=== PATIENT | female | born 1945 | race Caucasian/White ===

== ENCOUNTER 2016-09-23 06:44 | Inpatient (IN) ==
--- NOTE | 2016-09-22 20:42 | Discharge Summary ---
<Caron Romero - Last Filed: 09/22/16 20:38> Date of Encounter: 09/24/16 - Discharge Diagnosis (1) Arthritis of knee, right Priority: Primary Status: Acute (2) HTN (hypertension) Priority: Secondary Status: Chronic Qualifiers: Hypertension type: essential hypertension Qualified Code(s): I10 - Essential (primary) hypertension (3) COPD (chronic obstructive pulmonary disease) Priority: Secondary Status: Chronic Qualifiers: COPD type: unspecified COPD Qualified Code(s): J44.9 - Chronic obstructive pulmonary disease, unspecified (4) Tobacco abuse Priority: Secondary Status: Chronic - Discharge Medications Home Medications: Albuterol Sulfate [Albuterol Inhaler] 2 puff IH Q4HR PRN 08/16/15 [History] Atenolol [Tenormin] 50 mg PO DAILY #0 08/16/15 [History] Citalopram [CeleXA] 20 mg PO HS 08/16/15 [History] Aspirin Enteric Coated [Aspirin EC] 325 mg PO DAILY #21 tablet. 09/22/16 [Rx] OxyCODONE Immed Rel [Roxicodone 5 MG] 5 - 10 mg PO Q6HR PRN #40 tablet 09/22/16 [Rx] Aspirin 81 mg PO DAILY 09/23/16 [History] Diclofenac Sodium [Voltaren] 75 mg PO BID 09/23/16 [History] Ferrous Sulfate [Iron] 325 mg PO HS 09/23/16 [History] Losartan Potassium [Cozaar] 50 mg PO HS 09/23/16 [History] Pantoprazole Sodium [Protonix] 40 mg PO DAILY PRN 09/23/16 [History] Allergies/Adverse Reactions: Allergies Oxycodone Adverse Reaction (Verified 09/23/16 11:38) Confusion Primary care physician: Cary Anderson CNP - Patient Status Disposition: Home, Self-Care Condition: Good - Discharge Instructions Follow Up With: Erwin Burns MD [Partnered Physician] - 10/22/16 9:40 am Caron Romero PAC [Physician Hazmat Technician] - 10/03/16 8:45 am Cary Anderson CNP [Primary Care Provider] - 10/31/16 10:20 am - Hospital Course Hospital course: Ms. Reveles is a 71 year old female - Time Spent with Patient Total time spent providing and/or coordinating discharge services: <Erwin Burns - Last Filed: 09/24/16 06:27> Time of Encounter: 06:27 - Discharge Diagnosis (1) Arthritis of knee, right Priority: Primary Status: Acute (2) COPD (chronic obstructive pulmonary disease) Priority: Secondary Status: Chronic Qualifiers: COPD type: unspecified COPD Qualified Code(s): J44.9 - Chronic obstructive pulmonary disease, unspecified (3) HTN (hypertension) Priority: Secondary Status: Chronic Qualifiers: Hypertension type: essential hypertension Qualified Code(s): I10 - Essential (primary) hypertension (4) Tobacco abuse Priority: Secondary Status: Chronic Primary care physician: Cary Anderson CNP - Patient Status Functional capacity at discharge: uses cane/walker Overall status at discharge: patient is progressing back to baseline - Hospital Course Hospital course: Ms. Reveles is a 71 year old female The patient had an uneventful postoperative course. They received antibiotics and physical therapy and were discharged in stable condition. There will follow -up in the office in 2 weeks. ASA DVT prophylaxis - Time Spent with Patient Total time spent providing and/or coordinating discharge services:
--- NOTE | 2016-09-23 06:48 | History & Physical Report ---
Date of Encounter: 09/23/16 Time of Encounter: 06:47 24 Hour HP Update - Instructions Instructions: If the History and Physical is less than 30 days old and was completed prior to A.M. admission and or procedure and has NOT been updated on calendar day of procedure please complete this update prior to performing procedure. - Update Patient reports changes in Medical Condition: No Changes in assessment/condition: No Changes in Medication: No Preop tests/diagnostics Reviewed: Yes Surgery Remains Indicated: Yes Consent for Planned Operative Procedure(s) Verified: Yes - Pre-Operative Checklist Preoperative Checklist Indicated: No Prophylactic Antibiotic Ordered: Yes Is VTE Prophylaxis Indicated?: Yes
[2016-09-23] MEDS ORDERED: Albuterol 2.5 MG/3 ML NEBULIZER IH ONE (07:02)
[2016-09-23] MEDS ORDERED: CeFAZolin Pre 2,000 MG/100 ML 2,000 MG/100 ML BAG IVPB ONE (07:02)
[2016-09-23] MEDS ORDERED: Lidocaine 1% 20 ML MDV ID ONE (07:02)
[2016-09-23] MEDS ORDERED: Ringers Solution, Lactated 1,000 ML IVC SCH ×2 (07:15→11:31)
[2016-09-23] MEDS ORDERED: *HR* FentaNYL (PF) 100 MCG/2 ML VIAL ONE ×2 (07:53→08:00)
[2016-09-23] MEDS ORDERED: *HR* Midazolam HCl 2 MG/2 ML VIAL ONE (07:54)
[2016-09-23] MEDS ORDERED: *HR* Propofol 200 MG/20 ML VIAL IVP ONE (07:54)
[2016-09-23] MEDS ORDERED: Lidocaine -MPF 2% 2 ML VIAL ONE (07:54)
--- NOTE | 2016-09-23 08:25 | Anesthesia Evaluation PreOp ---
Date of Encounter: 09/23/16 Time of Encounter: 08:20 - Past History Planned Operation: Rt TKA Cardiac History: HTN Pulmonary History: Smoker, COPD IT ADMINISTRATOR History: Denies Any Significant HX Other Medical History: GERD, Other (Depression) Anesthesia History: No Prior Anesthetic Complications Alcohol Use: none Drug use: none Medications and Allergies Albuterol Sulfate [Albuterol Inhaler] 2 puff IH Q4HR PRN 08/16/15 [History] Atenolol 50 mg PO DAILY 08/16/15 [History] Citalopram [CeleXA] 20 mg PO DAILY 08/16/15 [History] Losartan [Cozaar] 25 mg PO DAILY 08/16/15 [History] Omeprazole [PriLOSEC] 20 mg PO DAILY 08/16/15 [History] Aspirin Enteric Coated [Aspirin EC] 325 mg PO DAILY #21 tablet. 09/22/16 [Rx] OxyCODONE Immed Rel [Roxicodone 5 MG] 5 - 10 mg PO Q6HR PRN #40 tablet 09/22/16 [Rx] Allergies No Known Allergies Allergy (Verified 03/30/16 00:23) - Meds/Allergy Pre-op Review Medications Reviewed: Yes Allergies Reviewed: Yes Beta Blockers on Current Med List: Yes (Atenolol today 25 mg) Anesthesia Results - Labs Laboratory Tests 09/09/16 09/09/16 09:45 09:45 Hgb 14.2 Hct 45.6 H Plt Count 399 Sodium 140 Potassium 4.7 H BUN 19 Creatinine 0.80 - Imaging EKG: report reviewed (SB) Anesthesia Exam O2 Sat Height 1.57 m Height 1.57 m Height 1.57 m Weight 77.564 kg Weight 77.564 kg Weight 77.564 kg O2 Sat by Pulse Oximetry 97 O2 Sat by Pulse Oximetry 97 Vital Signs Temp Pulse Resp BP Pulse Ox 98.6 F 59 18 129/72 97 09/23/16 07:01 09/23/16 07:01 09/23/16 07:01 09/23/16 07:01 09/23/16 07:01 Height: 5'2 Weight: 168 lbs NPO (# of Hours): MN - HEENT Pupil (Motor): Pupils equal, EOMI Mallampati: III Teeth: Missing, Poor dentition Oral Opening: Less than or equal to 3 - IT ADMINISTRATOR LOC: Oriented IT ADMINISTRATOR Motor: Normal RUE, Normal LUE, Normal RLE, Normal LLE, Normal Face IT ADMINISTRATOR Sensory: Normal: RUE, LUE, RLE, LLE, Face - Cardiac Rhythm: Regular Murmur: None JVD: No Carotid Bruit: No - Pulmonary Breath Sounds: bilateral Clear Respiratory Effort: Symmetrical Anesthesia Assess/Plan ASA Score: 2 Modified Drain Scale for Level of Consciousness: Cooperative, oriented, and tranquil Anesthetic Plan: General, Regional Monitoring Plan: Standard Monitors Recovery Plan: PACU (Discussed GA and Femoral Block, agrees to proceed)
[2016-09-23] MEDS ORDERED: Famotidine 20 MG/2 ML VIAL IVP ONE (08:26)
[2016-09-23] MEDS ORDERED: Tetracaine/PF 20 MG/2 ML AMPUL SPINA ONE (08:47)
[2016-09-23] MEDS ORDERED: Dexamethasone 4 MG/ML VIAL ONE (09:10)
[2016-09-23] MEDS ORDERED: Ketorolac 30 MG/ML VIAL ONE (09:10)
[2016-09-23] MEDS ORDERED: Ondansetron 4 MG/2 ML VIAL ONE (09:10)
[2016-09-23] MEDS ORDERED: EPHEDrine 50 MG/ML VIAL ONE (09:12)
[2016-09-23] MEDS ORDERED: *HR* HYDROmorphone 2 MG/ML SYRINGE ONE (09:24)
--- NOTE | 2016-09-23 09:24 | Anesthesia Procedures ---
Date of Encounter: 09/23/16 Time of Encounter: 08:45 Procedures: Anesthesia - Nerve Block Procedure Date: 09/23/16 Time: 08:45 Allergies/Adv Reactions: Allergies No Known Allergies Allergy (Verified 09/23/16 08:26) Pre-op Diagnosis: oa right knee Surgical Procedure: right tka Checklist: Correct Patient Identifier, Correct procedure, History checked Correct side: Right Blood Thinner: No Monitor Applied: EKG, BP, Pulse Oximetry Supplemental Oxygen via Nasal Cannula (L/min): 2 Sedation: Versed (mg): 2 Sedation: Fentanyl (mcg): 100 Indication: Post Op Analgesia Pre-op Neuro Deficits: No Block Type: Femoral Catheter placed: No Sterile Technique: Yes Ultrasound used: Yes Anatomy identified: Yes Visual spread of Local: Yes Neuro Stimulation: Yes Nerve Stimulator Range: 0.2 - 0.4 mA Blood on Needle Aspiration: No Smooth Injection of Local: Yes Pain with Injection of Local: Yes Prep: Chlorhexadine Needle: 22 x 50 mm Stimuplex Local: Other (0.5% bupivaine) Volume (cc): 30 Number of Attempts: 1 Complications: None/effective block Vitals: see nurses notes Comments: peripheral nerve block under ultrasound per dr peralta request for postop pain relief
[2016-09-23] MEDS ORDERED: *HR* Labetalol 100 MG/20 ML MDV IVP PRN (09:25)
--- NOTE | 2016-09-23 09:43 | Orthopedic Operative Note ---
Date of procedure: 09/23/16 Pre-op diagnosis: Right knee arthritis Post-op diagnosis: same Procedure: Procedure: Right Total knee replacement Estimated blood loss: 200 cc Hardware: Arthrex Femur: 4 Tibia: 3 PS insert: 14 Patella: 37 Exam Under anesthesia: Full flexion full extension no instability Procedural Notes: Grade 3 arthritic changes medial compartment patellofemoral joint. Operative procedure: The patient was brought to the operating room and placed on the operating room table. After general anesthesia was administered the operative knee was examined. Findings were noted in the exam under anesthesia. The operative extremity was prepped and draped in sterile surgical fashion. The patient received IV antibiotics prior to skin incision. A standard midline incision was made centered over the patella. The incision was made through the skin and subcutaneous tissue. A medial parapatellar tendon approach was performed. Care was taken to preserve tissue along the medial aspect of the patella. And to protect the patella tendon. The deep MCL was released off the medial tibia. The infra patella fat pad was excised. Knee was brought into flexion. Patient noted to have grade 3 arthritic changes medial compartment patellofemoral joint. The entry hole was made for the intramedullary femoral guide. The guide was seated in 6 degrees of valgus. Anterior cut was made followed by the distal cut. The ACL the PCL the medial and the lateral menisci were excised. The tibia was subluxed forward. The entry hole was made for the intramedullary tibial guide. Guide was seated to resect 2 mm off the more abnormal side. The knee was brought into flexion the distal femur was sized for. The femoral guide was seated, the anterior cut was made followed by the posterior condylar cut, followed by the chamfer cuts. The finishing guide was seated the box cut was made and the lug holes were drilled. The tibia was sized 3, the tibial tray was seated and prepared with the large drill followed by the fin cutter. Trial reduction revealed full extension no varus valgus instability with the appropriate 14 PS Dorita. The patella was everted and cut was made at the level of the insertion of the quadriceps and patella tendon. The patella was sized 37 the guide was seated and the lug holes are drilled. Trial reduction revealed excellent patella tracking. All trial components were removed all bony surfaces were irrigated. The tibia was cemented first followed by the femur. A 14 PS Dorita was seated and the knee was brought into full extension. The patella was cemented and held in place with the patellar holding clamp. After the cement had hardened, the knee sat for 2 minutes with a Betadine saline solution. The knee was then irrigated out with 2 L of pulse irrigation. The extensor mechanism was closed with #2 FiberWire suture and #2 PDS suture. The subcutaneous tissue was then irrigated and closed deep with #1 PDS suture superficially with 0 PDS suture and skin was closed with skin emigdio and Dermabond. The patient was then placed in a sterile dressing and a postoperative brace extubated and transferred to recovery room in stable condition. Anesthesia: NILTON Surgeon: Erwin Burns Professional Services Consultant: Caron Romero Condition: stable Disposition: PACU
[2016-09-23] MEDS: *HR* HYDROmorphone (PF) 1 MG/ML SYRINGE IVP PRN ×4 (10:24→10:46)
[2016-09-23 10:38] LABS: Hematocrit 39.4 % (35.3-44.9); Hemoglobin 12.5 g/dL (11.5-15.4)
[2016-09-23] MEDS ORDERED: Sennosides 8.6 MG TABLET PO PRN (11:31)
[2016-09-23] MEDS ORDERED: MOM Conc 10 ML UD.LIQ PO PRN (11:31)
[2016-09-23] MEDS ORDERED: Albuterol Neb 1.25 MG/3 ML VIAL IH ONE (11:31)
[2016-09-23] MEDS ORDERED: *HR* HYDROmorphone (PF) 1 MG/ML SYRINGE IVP PRN (11:31)
[2016-09-23] MEDS ORDERED: Acetaminophen 325 MG TABLET PO PRN (11:31)
[2016-09-23] MEDS ORDERED: *HR* OxyCODONE Immed Rel 5 MG TABLET PO PRN ×2 (11:31)
[2016-09-23] MEDS ORDERED: Temazepam 15 MG CAPSULE PO PRN (11:31)
[2016-09-23] MEDS ORDERED: Naloxone 0.4 MG/ML INJ IVP PRN (11:31)
[2016-09-23] MEDS ORDERED: Ondansetron 4 MG/2 ML VIAL IVP PRN (11:31)
--- NOTE | 2016-09-23 12:00 | Anesthesia Evaluation Post Op ---
Date of Encounter: 09/23/16 Time of Encounter: 11:40 - Vital Signs Vital Signs: Vital Signs/O2 Sat/Glucose, Most Current Temp Pulse Resp BP Pulse Ox 09/23/16 11:29 98.8 F 63 16 144/75 98 09/23/16 11:06 97.2 F L 68 16 160/80 97 09/23/16 10:56 76 16 151/70 98 09/23/16 10:46 70 16 159/78 97 09/23/16 10:36 97.0 F L 78 16 158/82 98 09/23/16 10:26 70 14 164/87 98 09/23/16 10:16 72 16 164/87 99 09/23/16 10:06 97.6 F 73 12 159/91 97 09/23/16 08:56 60 128/65 98 09/23/16 08:48 53 132/88 100 - Lungs Lungs: Clear Ascult./Percussion - Airway Airway: Non-obstructed - Cardiovascular Regular Rate - Mental Status Mental Status: Alert & Oriented, Answers Appropriately - Nausea Vomiting Nausea Vomiting: Not Present - Hydration Hydration: Ice chips - Discharge PostOp Status: Transfer Patient to floor
[2016-09-23] MEDS: *HR* Enoxaparin 30 MG/0.3 ML SYRINGE SQ SCH (16:54)
[2016-09-23] MEDS: ceFAZolin 2,000 MG in D5% in Water 100 ML IVPB SCH (16:54)
[2016-09-23] MEDS ORDERED: *HR* Enoxaparin 30 MG/0.3 ML SYRINGE SQ SCH (18:00)
[2016-09-23] MEDS: Diclofenac Sodium 75 MG TABLET PO SCH (21:07)
[2016-09-23] MEDS: *HR* HYDROcodone/Acet 5/325 mg TABLET PO PRN (21:07)
[2016-09-24] MEDS: ceFAZolin 2,000 MG in D5% in Water 100 ML IVPB SCH (00:28)
[2016-09-24] MEDS: *HR* HYDROcodone/Acet 5/325 mg TABLET PO PRN ×3 (05:14→20:05)
[2016-09-24] MEDS: *HR* Enoxaparin 30 MG/0.3 ML SYRINGE SQ SCH ×2 (05:14→17:58)
[2016-09-24 05:21] LABS: Hematocrit 33.6 % (35.3-44.9); Hemoglobin 10.6 g/dL (11.5-15.4)
[2016-09-24 05:34] LABS: BUN/Creatinine Ratio 18 (6-26); Blood Urea Nitrogen 12 mg/dL (7-20); Calcium 9.1 mg/dL (8.6-10.8); Carbon Dioxide 19 mEq/L (19-29); Chloride 108 mEq/L (98-109); Glucose 102 mg/dL (70-99); Osmolality,Calculated 286 (280-300); Potassium 4.3 mEq/L (3.5-4.5); Sodium 138 mEq/L (136-145); eGFR For African Americans > 60 (> 60); eGFR For Non-African Americans > 60 (> 60)
--- NOTE | 2016-09-24 06:28 | Orthopedics Progress Note ---
Date of Encounter: 09/24/16 Time of Encounter: 06:28 - Assessment and Plan (1) Arthritis of knee, right Current Visit: Yes Status: Acute (2) COPD (chronic obstructive pulmonary disease) Current Visit: Yes Status: Chronic Qualifiers: COPD type: unspecified COPD Qualified Code(s): J44.9 - Chronic obstructive pulmonary disease, unspecified (3) HTN (hypertension) Current Visit: Yes Status: Chronic Qualifiers: Hypertension type: essential hypertension Qualified Code(s): I10 - Essential (primary) hypertension (4) Tobacco abuse Current Visit: Yes Status: Chronic Subjective Interval history: Patient was seen this morning doing well without complaints. Afebrile vital signs stable. Operative extremity: Neurovascularly intact Dressing clean dry and intact Calves nontender Assessment and plan: Continue with postoperative care Hematocrit 33 discharge today Objective Vital signs: Vital Signs Temp Pulse Resp BP Pulse Ox 09/24/16 04:00 98.2 F 69 16 121/60 98 09/24/16 00:00 98.0 F 64 18 112/55 98 09/23/16 19:02 98.1 F 69 18 115/56 97 09/23/16 16:08 16 120/69 98 09/23/16 15:03 98.6 F 65 18 120/69 98 09/23/16 14:30 98.5 F 65 12 132/72 98 09/23/16 13:16 97.9 F 63 12 133/73 98 09/23/16 12:30 98.8 F 62 16 124/58 97 09/23/16 12:16 97.9 F 60 16 130/75 97 09/23/16 11:29 98.8 F 63 16 144/75 98 09/23/16 11:06 97.2 F L 68 16 160/80 97 09/23/16 10:56 76 16 151/70 98 09/23/16 10:46 70 16 159/78 97 09/23/16 10:36 97.0 F L 78 16 158/82 98 09/23/16 10:26 70 14 164/87 98 09/23/16 10:16 72 16 164/87 99 09/23/16 10:06 97.6 F 73 12 159/91 97 09/23/16 08:56 60 128/65 98 09/23/16 08:48 53 132/88 100 09/23/16 07:12 98.6 F 59 18 129/72 97 09/23/16 07:01 98.6 F 59 18 129/72 97 Intake and Output 09/23/16 09/23/16 09/24/16 15:59 23:59 07:59 Intake Total 300 / 300 2180 / 2180 100 / 100 Output Total 200 / 200 900 / 900 300 / 300 Balance 100 / 100 1280 / 1280 -200 / -200 Intake: IV Fluids 100 / 100 100 / 100 100 / 100 Ancef 2,000 MG In 100 / 100 100 / 100 Dextrose 5% 100 ML @ 200 mls/hr IVPB Q8H VINNY Rx#: [id number] Ancef Premix 2,000 MG/100 100 / 100 ML 2,000 mg In 100 ml @ 200 mls/hr IVPB PREOP ONE Rx#:[id number] Oral 200 / 200 2080 / 2080 Output: Urine 900 / 900 300 / 300 Estimated Blood Loss 200 / 200 Other: Meal Lunch Dinner Percent of Meal Consumed 90% 100% # Voids 1 1 - Labs CBC & BMP: 09/24/16 04:45 09/24/16 04:45 Labs: Abnormal lab results Hgb 10.6 g/dL (11.5-15.4) L D 09/24/16 04:45 Hct 33.6 % (35.3-44.9) L 09/24/16 04:45 Glucose 102 mg/dL (70-99) H 09/24/16 04:45 - VTE Documentation of Mechanical Device: Intermittent pneumatic compression device Consult Discharge Plan - Plan Referrals: Erwin Burns MD [Partnered Physician] - 10/22/16 9:40 am Caron Romero PAC [Physician Gear Keeper] - 10/03/16 8:45 am Cary Anderson CNP [Primary Care Provider] - 10/31/16 10:20 am
[2016-09-24] MEDS: Diclofenac Sodium 75 MG TABLET PO SCH ×2 (09:15→20:05)
[2016-09-24] MEDS: Aspirin 81 MG TAB.CHEW PO SCH (09:15)
[2016-09-25] MEDS: *HR* HYDROcodone/Acet 5/325 mg TABLET PO PRN ×5 (00:51→21:02)
[2016-09-25] MEDS: *HR* Enoxaparin 30 MG/0.3 ML SYRINGE SQ SCH ×2 (05:43→18:58)
[2016-09-25 06:37] LABS: Hematocrit 38.5 % (35.3-44.9); Hemoglobin 11.8 g/dL (11.5-15.4)
[2016-09-25 06:50] LABS: BUN/Creatinine Ratio 19 (6-26); Blood Urea Nitrogen 13 mg/dL (7-20); Calcium 9.6 mg/dL (8.6-10.8); Carbon Dioxide 23 mEq/L (19-29); Chloride 105 mEq/L (98-109); Glucose 93 mg/dL (70-99); Osmolality,Calculated 292 (280-300); Potassium 3.9 mEq/L (3.5-4.5); Sodium 141 mEq/L (136-145); eGFR For African Americans > 60 (> 60); eGFR For Non-African Americans > 60 (> 60)
[2016-09-25] MEDS: Aspirin 81 MG TAB.CHEW PO SCH (09:34)
[2016-09-25] MEDS: Diclofenac Sodium 75 MG TABLET PO SCH ×2 (09:34→19:23)
--- NOTE | 2016-09-25 09:43 | Orthopedics Progress Note ---
Date of Encounter: 09/25/16 Time of Encounter: 09:43 - Assessment and Plan (1) Arthritis of knee, right Current Visit: Yes Status: Acute (2) COPD (chronic obstructive pulmonary disease) Current Visit: Yes Status: Chronic Qualifiers: COPD type: unspecified COPD Qualified Code(s): J44.9 - Chronic obstructive pulmonary disease, unspecified (3) HTN (hypertension) Current Visit: Yes Status: Chronic Qualifiers: Hypertension type: essential hypertension Qualified Code(s): I10 - Essential (primary) hypertension (4) Tobacco abuse Current Visit: Yes Status: Chronic Subjective Interval history: Patient was seen this morning doing well without complaints. Afebrile vital signs stable. Operative extremity: Neurovascularly intact Dressing clean dry and intact Calves nontender Assessment and plan: Continue with postoperative care Hematocrit 38 Objective Vital signs: Vital Signs Temp Pulse Resp BP Pulse Ox 09/25/16 07:12 98.1 F 66 16 149/65 96 09/25/16 05:04 98.0 F 61 16 136/71 92 L 09/25/16 01:33 98.1 F 67 16 120/70 92 L 09/24/16 21:58 98.6 F 68 16 144/69 92 L 09/24/16 15:51 98.2 F 57 16 141/78 97 09/24/16 11:21 98.5 F 78 16 130/63 98 Intake and Output 09/24/16 09/25/16 09/25/16 23:59 07:59 15:59 Intake Total 240 / 240 Balance 240 / 240 Intake: Oral 240 / 240 Other: Meal Breakfast Percent of Meal Consumed 90% - Labs CBC & BMP: 09/25/16 05:51 09/25/16 05:51 - VTE Documentation of Mechanical Device: Intermittent pneumatic compression device Consult Discharge Plan - Plan Additional Instructions: Discharge Instructions: Total Knee Replacement Please call [facility] ([phone]), your Primary Care Physician, or report to the Emergency Room if you have any of the following symptoms: Nausea, vomiting, fever greater that 101.5, swelling, chest pain, shortness of breath, increased pain/redness/drainage/odor for your incision site, numbness/ tingling, or any other concerning symptoms. ACTIVITY:Weight-bearing as tolerated. You may progress off support (cruthches or walker) as tolerated. MEDICATIONS: Upon discharge resume your home medications. Take all the medications as prescribed. Take a stool softener if taking narcotic pain medications. Stool softeners are only effective if you drink enough fluids. Drink 6-8 glass of water or fluids a day, unless this is not allowed for another health problem. Despite using stool softeners, if you haven't had a bowel movement in 3 days, please switch to a gentle laxative. Gentle laxatives are sold over the counter. You should have a bowel movement within 24 hours, if not call the office. You will be discharged from the hospital with a prescription for pain medication. You are encouraged to decrease the use of narcotic pain medication as tolerated. Should you require a refill, please call the office. [facility] prescribes narcotic pain medication for only 4-6 weeks after surgery. If you require pain medication beyond this time periord, you may be referred to your Primary Care Physician or to the Pain Clinic for further evaluation. Plan ahead for refills on pain medication as many narcotics either need to be picked up at the office or mailed. It is best to call 48-72 hours in advance of needing a prescription refill so you don't run out of medication. To help control the post-operative pain, you may take NSAIDs (Aleve,Advil, Motrin, ibuprofen, naprosyn) or Tylenol as prescribed on the bottle in addition to the pain medication. ANTICOAGULATION (blood thinners): Continue your Aspirin, Lovenox or Coumadin as prescribed to help prevent a blood clot in the leg or in the lungs. As long as your incision remains dry and you tolerate the NSAIDs (Aleve, Advil, Motrin, ibuprofen, naprosyn), it is OK to use the NSAIDS while you are taking your anticoagulation medication. Should your incision start to drain, stop the NSAID and contact our office. Common symptoms of blood clot in the legs include: localized pain, swelling, calf tenderness, redness or discoloration of the skin. Blood clot in the lung symptoms include: shortness of breath, rapid pulse, sweating, and chest pain that worsens with deep breathing, coughing up blood, lightheadedness, feelings of anxiety. If you experience any of these symptoms notify your physician immediately, go to the emergency room, or if having trouble breathing, call 911. WOUND CARE: Leave the dressing on for 7 days. You may change the dressing if it becomes saturated greater than 50%. You can shower but not a tub bath or submerge your incision in water. Wash your hands with antibacterial soap, rinse and dry prior to any wound care. If you have emigdio the visiting nurse or rehab facility can remove the stapes 10-14 days after surgery and place steri- strips across the wound. Leave the steri-strips in place until they fall off on their won. You may let water from the shower run on top of the steri-stirips. If you do not have a visiting nurse or rehab facility, you will need to return to the office at 10-14 days for the emigdio to be removed. FOLLOW-UP: Please follow up with your surgeon in the orthopedic clinic in 4 weeks from the day of surgery. If you have emigdio that need to be removed, you will need to come back to the office in 10-14 days from the day of surgery. Referrals: Erwin Burns MD [Partnered Physician] - 10/22/16 9:40 am Caron Romero PAC [Physician Supervisor Toy Assembly] - 10/03/16 8:45 am Cary Anderson CNP [Primary Care Provider] - 10/31/16 10:20 am
[2016-09-26] MEDS: *HR* Enoxaparin 30 MG/0.3 ML SYRINGE SQ SCH (05:52)
[2016-09-26] MEDS: *HR* HYDROcodone/Acet 5/325 mg TABLET PO PRN ×2 (05:55→10:05)
[2016-09-26 06:35] VITALS: BP 95/56
[2016-09-26] MEDS: Aspirin 81 MG TAB.CHEW PO SCH (10:06)
[2016-09-26] MEDS: Diclofenac Sodium 75 MG TABLET PO SCH (10:06)
== END 2016-09-26 10:40 | disposition home or self-care (01) | DRG 470 ==
LOC: SAMDAY 06:44 → 3NENU 11:14
PROVIDERS: ADMIT Orthopaedic Surgery; ATTEND Orthopaedic Surgery

== ENCOUNTER 2021-02-08 09:21 | Inpatient (IN) ==
[2021-02-08] MEDS ORDERED: Isovue-370 500 ML BOTTLE IVP ONE (09:39)
[2021-02-08] MEDS ORDERED: *HR* FentaNYL (PF) 100 MCG/2 ML VIAL IVP ONE ×2 (09:40→10:50)
[2021-02-08 11:06] LABS: Albumin 4.4 g/dL (3.5-5.7); Albumin/Globulin Ratio 1.3 (1.1-2.2); Bilirubin,Indirect 0.4 mg/dL (0.0-1.0); Bilirubin,Total 0.4 mg/dL (0.3-1.0); Globulin 3.3 g/dL (2.4-3.5); Total Protein 7.7 g/dL (6.4-8.9)
[2021-02-08] MEDS ORDERED: *HR* HYDROmorphone (PF) 1 MG/ML SYRINGE IVP ONE (13:03)
[2021-02-08] MEDS ORDERED: Naloxone 0.4 MG/ML INJ IVP PRN (13:48)
[2021-02-08] MEDS ORDERED: *HR* HYDROmorphone (PF) 1 MG/ML SYRINGE IVP PRN (14:39)
[2021-02-08] MEDS ORDERED: 0.9 % Sodium Chloride 1,000 ML IVC SCH (14:45)
[2021-02-08 15:16] LABS: Basophils # 0.1 K/mcL (0.0-0.2); Basophils % 0.3 %; Eosinophils % 0.1 %; Hematocrit 50.4 % (35.3-44.9); Hemoglobin 15.6 g/dL (11.5-15.4); Immature Granulocytes % 0.7 % (0-4); Lymphocytes # 1.7 K/mcL (0.6-4.6); Lymphocytes % 7.8 %; Mean Corpuscular Hemoglobin 31.8 pg (28.0-33.3); Mean Corpuscular Volume 102.6 fL (83.0-100.0); Mean Platelet Volume 11.8 fL (9.4-12.4); Monocytes # 1.4 K/mcL (0.0-1.3); Monocytes % 6.4 %; Neutrophils # 18.6 K/mcL (1.6-8.9); Platelet Count 219 K/mcL (140-400); Red Blood Count 4.91 M/mcL (3.82-4.97); Red Cell Distribution Width 15.5 % (11.5-14.5); Segmented Neutrophils % 84.7 %; White Blood Count 21.9 K/mcL (4.3-11.1)
[2021-02-08] MEDS ORDERED: Piperacillin/Tazobactam 3.375 GM in 0.9 % Sodium Chloride Mini Bag 100 ML IVPB ONE (15:23)
[2021-02-08 16:18] LABS: BUN/Creatinine Ratio 23 (6-26); Blood Urea Nitrogen 13 mg/dL (8-23); Calcium 9.5 mg/dL (8.6-10.3); Carbon Dioxide 16 mEq/L (23-29); Chloride 110 mEq/L (98-107); Glucose 122 mg/dL (70-105); Magnesium 2.1 mg/dL (1.6-2.6); Osmolality,Calculated 291 (280-300); Phosphorous 3.4 mg/dL (2.7-4.5); Potassium 3.9 mEq/L (3.5-5.1); Sodium 140 mEq/L (136-145); Troponin I < 0.03 ng/mL (< 0.04); eGFR For African Americans > 60 (> 60); eGFR For Non-African Americans > 60 (> 60)
[2021-02-08] MEDS: atenoloL 50 MG TABLET PO SCH (16:34)
[2021-02-08] MEDS ORDERED: Ondansetron 4 MG/2 ML VIAL IVP PRN (17:05)
[2021-02-08] MEDS: Sodium Bicarbonate 75 MEQ in 0.45 % Sodium Chloride 1,000 ML IVC SCH (20:34)
[2021-02-08] MEDS ORDERED: Acetaminophen IV 1,000 MG/100 ML BAG IVPB ONE (22:57)
[2021-02-08] MEDS: Piperacillin/Tazobactam 3.375 GM in 0.9 % Sodium Chloride Mini Bag 100 ML IVPB SCH (23:40)
[2021-02-09] MEDS ORDERED: Acetaminophen IV 1,000 MG/100 ML BAG IVPB ONE ×3 (04:28→14:03)
[2021-02-09] MEDS: Levothyroxine 25 MCG TABLET PO SCH ×2 (05:05→07:40)
[2021-02-09] MEDS: Piperacillin/Tazobactam 3.375 GM in 0.9 % Sodium Chloride Mini Bag 100 ML IVPB SCH ×2 (07:33→17:12)
[2021-02-09] MEDS: atenoloL 50 MG TABLET PO SCH (07:40)
[2021-02-09] MEDS ORDERED: cefOXitin 1,000 MG, Sodium Chloride IRRigation 1,000 ML IR ONE ×2 (08:00→14:03)
[2021-02-09] MEDS ORDERED: Aspirin 81 MG TAB.CHEW PO SCH (09:00)
[2021-02-09] MEDS ORDERED: Loratadine 10 MG TABLET PO SCH (09:00)
[2021-02-09] MEDS ORDERED: predniSONE 10 MG TABLET PO SCH (09:00)
[2021-02-09 09:30] LABS: Basophils % 0.2 %; Hematocrit 48.8 % (35.3-44.9); Hemoglobin 15.5 g/dL (11.5-15.4); Immature Granulocytes % 0.7 % (0-4); Lymphocytes # 1.1 K/mcL (0.6-4.6); Lymphocytes % 4.9 %; Mean Corpuscular HGB Conc 31.8 g/dL (31.6-35.5); Mean Corpuscular Hemoglobin 31.6 pg (28.0-33.3); Mean Corpuscular Volume 99.6 fL (83.0-100.0); Mean Platelet Volume 12.3 fL (9.4-12.4); Monocytes % 4.2 %; Neutrophils # 20.6 K/mcL (1.6-8.9); Platelet Count 245 K/mcL (140-400); Red Cell Distribution Width 15.4 % (11.5-14.5); White Blood Count 22.8 K/mcL (4.3-11.1)
[2021-02-09 09:47] LABS: Alanine Aminotransferase 146 Units/L (7-52); Albumin 3.9 g/dL (3.5-5.7); Albumin/Globulin Ratio 1.4 (1.1-2.2); Alkaline Phosphatase 108 Units/L (34-104); Aspartate Amino Transferase 156 Units/L (13-39); BUN/Creatinine Ratio 16 (6-26); Bilirubin,Total 4.9 mg/dL (0.3-1.0); Blood Urea Nitrogen 11 mg/dL (8-23); Calcium 9.1 mg/dL (8.6-10.3); Carbon Dioxide 22 mEq/L (23-29); Chloride 108 mEq/L (98-107); Globulin 2.8 g/dL (2.4-3.5); Glucose 143 mg/dL (70-105); Osmolality,Calculated 288 (280-300); Phosphorous 3.1 mg/dL (2.7-4.5); Potassium 3.7 mEq/L (3.5-5.1); Sodium 138 mEq/L (136-145); Total Protein 6.7 g/dL (6.4-8.9); eGFR For African Americans > 60 (> 60); eGFR For Non-African Americans > 60 (> 60)
[2021-02-09] MEDS ORDERED: *HR* FentaNYL (PF) 100 MCG/2 ML VIAL ONE ×2 (09:49→12:24)
[2021-02-09] MEDS ORDERED: *HR* Rocuronium Bromide 50 MG/5 ML VIAL ONE (09:50)
[2021-02-09] MEDS ORDERED: Ondansetron 4 MG/2 ML VIAL ONE (09:50)
[2021-02-09] MEDS ORDERED: *HR* Propofol 200 MG/20 ML VIAL IVP ONE (09:50)
[2021-02-09] MEDS ORDERED: *HR* Succinylcholine 200 MG/10 ML VIAL IVP ONE (09:50)
[2021-02-09] MEDS ORDERED: Lidocaine HCL 4 ML Topical Solution (Laryng-O-Jet Kit Sterile Pak) TP ONE (09:50)
[2021-02-09] MEDS ORDERED: Lidocaine -MPF 2% 2 ML VIAL ONE ×2 (09:50→12:35)
[2021-02-09] MEDS ORDERED: Ipratropium/Albuterol Neb 3 ML ONE ×2 (10:46→10:51)
[2021-02-09] MEDS ORDERED: Isovue-300 50ML VIAL ONE (10:52)
[2021-02-09] MEDS ORDERED: CefOXitin 1,000 MG VIAL ONE (10:54)
[2021-02-09] MEDS ORDERED: Promethazine 6.25 MG in Water for inj. (sterile) 20 ML IVPB PRN ×2 (11:15→14:03)
[2021-02-09] MEDS ORDERED: Famotidine 20 MG/2 ML VIAL IVP ONE ×2 (11:15→14:03)
[2021-02-09] MEDS ORDERED: *HR* OxyCODONE Immed Rel 5 MG TABLET PO PRN ×2 (11:15→14:03)
[2021-02-09] MEDS ORDERED: *HR* HYDROmorphone 2 MG TABLET PO PRN ×2 (11:15→14:03)
[2021-02-09] MEDS ORDERED: *HR* Labetalol 20 MG/4 ML SYRINGE IVP PRN ×2 (11:15→14:03)
[2021-02-09] MEDS: *HR* HYDROmorphone (PF) 1 MG/ML SYRINGE IVP PRN ×5 (12:55→18:34)
[2021-02-09] MEDS ORDERED: Sodium Bicarbonate 75 MEQ in 0.45 % Sodium Chloride 1,000 ML IVC SCH (14:03)
[2021-02-09] MEDS ORDERED: Ondansetron 4 MG/2 ML VIAL IVP PRN (14:03)
[2021-02-09] MEDS ORDERED: Naloxone 0.4 MG/ML INJ IVP PRN (14:03)
[2021-02-09] MEDS: Sodium Bicarbonate 75 MEQ in 0.45 % Sodium Chloride 1,000 ML IVC SCH (19:06)
[2021-02-10] MEDS: *HR* HYDROmorphone (PF) 1 MG/ML SYRINGE IVP PRN ×5 (00:45→20:18)
[2021-02-10] MEDS: Piperacillin/Tazobactam 3.375 GM in 0.9 % Sodium Chloride Mini Bag 100 ML IVPB SCH ×4 (00:52→23:42)
[2021-02-10 04:28] LABS: Alanine Aminotransferase 96 Units/L (7-52); Albumin 3.3 g/dL (3.5-5.7); Albumin/Globulin Ratio 1.1 (1.1-2.2); Alkaline Phosphatase 114 Units/L (34-104); Aspartate Amino Transferase 60 Units/L (13-39); BUN/Creatinine Ratio 16 (6-26); Bilirubin,Total 1.8 mg/dL (0.3-1.0); Blood Urea Nitrogen 10 mg/dL (8-23); Calcium 8.5 mg/dL (8.6-10.3); Carbon Dioxide 16 mEq/L (23-29); Chloride 104 mEq/L (98-107); Glucose 74 mg/dL (70-105); Magnesium 1.9 mg/dL (1.6-2.6); Osmolality,Calculated 278 (280-300); Phosphorous 2.4 mg/dL (2.7-4.5); Potassium 4.3 mEq/L (3.5-5.1); Sodium 135 mEq/L (136-145); Total Protein 6.3 g/dL (6.4-8.9); eGFR For African Americans > 60 (> 60); eGFR For Non-African Americans > 60 (> 60)
[2021-02-10 05:06] LABS: Basophils % 0.1 %; Hematocrit 44.4 % (35.3-44.9); Hemoglobin 14.2 g/dL (11.5-15.4); Immature Granulocytes % 1.1 % (0-4); Lymphocytes # 1.5 K/mcL (0.6-4.6); Lymphocytes % 6.5 %; Mean Corpuscular Hemoglobin 32.6 pg (28.0-33.3); Mean Corpuscular Volume 101.8 fL (83.0-100.0); Mean Platelet Volume 12.4 fL (9.4-12.4); Monocytes # 1.3 K/mcL (0.0-1.3); Monocytes % 5.3 %; Neutrophils # 20.6 K/mcL (1.6-8.9); Platelet Count 223 K/mcL (140-400); Red Blood Count 4.36 M/mcL (3.82-4.97); Red Cell Distribution Width 15.2 % (11.5-14.5); White Blood Count 23.7 K/mcL (4.3-11.1)
[2021-02-10] MEDS: Loratadine 10 MG TABLET PO SCH (07:46)
[2021-02-10] MEDS: predniSONE 10 MG TABLET PO SCH (07:46)
[2021-02-10] MEDS: atenoloL 50 MG TABLET PO SCH (07:47)
[2021-02-10] MEDS: Levothyroxine 25 MCG TABLET PO SCH (08:04)
[2021-02-10] MEDS ORDERED: Ipratropium/Albuterol Neb 3 ML IH PRN (14:03)
[2021-02-10] MEDS: Sodium Bicarbonate 75 MEQ in 0.45 % Sodium Chloride 1,000 ML IVC SCH (20:18)
[2021-02-11] MEDS: *HR* HYDROmorphone (PF) 1 MG/ML SYRINGE IVP PRN ×4 (03:03→21:44)
[2021-02-11] MEDS: Levothyroxine 25 MCG TABLET PO SCH (05:44)
[2021-02-11 06:45] LABS: Hemoglobin 12.7 g/dL (11.5-15.4); Mean Corpuscular HGB Conc 31.8 g/dL (31.6-35.5); Mean Corpuscular Hemoglobin 32.5 pg (28.0-33.3); Mean Corpuscular Volume 102.3 fL (83.0-100.0); Mean Platelet Volume 12.5 fL (9.4-12.4); Platelet Count 212 K/mcL (140-400); Red Blood Count 3.91 M/mcL (3.82-4.97); Red Cell Distribution Width 15.2 % (11.5-14.5); White Blood Count 16.5 K/mcL (4.3-11.1)
[2021-02-11 07:03] LABS: Alanine Aminotransferase 53 Units/L (7-52); Albumin 3.3 g/dL (3.5-5.7); Alkaline Phosphatase 79 Units/L (34-104); Aspartate Amino Transferase 19 Units/L (13-39); BUN/Creatinine Ratio 18 (6-26); Bilirubin,Total 1.3 mg/dL (0.3-1.0); Blood Urea Nitrogen 11 mg/dL (8-23); Calcium 8.9 mg/dL (8.6-10.3); Carbon Dioxide 26 mEq/L (23-29); Chloride 104 mEq/L (98-107); Globulin 3.2 g/dL (2.4-3.5); Glucose 80 mg/dL (70-105); Osmolality,Calculated 282 (280-300); Potassium 3.8 mEq/L (3.5-5.1); Sodium 137 mEq/L (136-145); Total Protein 6.5 g/dL (6.4-8.9); eGFR For African Americans > 60 (> 60); eGFR For Non-African Americans > 60 (> 60)
[2021-02-11] MEDS ORDERED: Perflutren Lipid Microsphere 1.3 ML in 0.9 % Sodium Chloride 8.7 ML IVP PRN (07:59)
[2021-02-11] MEDS: Piperacillin/Tazobactam 3.375 GM in 0.9 % Sodium Chloride Mini Bag 100 ML IVPB SCH ×3 (08:48→23:09)
[2021-02-11] MEDS: predniSONE 10 MG TABLET PO SCH (08:49)
[2021-02-11] MEDS: atenoloL 50 MG TABLET PO SCH (08:49)
[2021-02-11] MEDS: Loratadine 10 MG TABLET PO SCH (08:49)
[2021-02-11] MEDS ORDERED: Furosemide 40 MG/4 ML VIAL IVP ONE (09:43)
[2021-02-11] MEDS: Sodium Bicarbonate 75 MEQ in 0.45 % Sodium Chloride 1,000 ML IVC SCH (11:42)
[2021-02-11] MEDS: MethylPREDNISolone 40 MG/ML VIAL IVP SCH ×2 (16:29→23:09)
[2021-02-11] MEDS ORDERED: Isovue-370 500 ML BOTTLE IVP ONE (16:56)
[2021-02-12 01:53] LABS: Hematocrit 41.2 % (35.3-44.9); Hemoglobin 12.9 g/dL (11.5-15.4); Mean Corpuscular HGB Conc 31.3 g/dL (31.6-35.5); Mean Corpuscular Hemoglobin 31.9 pg (28.0-33.3); Mean Corpuscular Volume 101.7 fL (83.0-100.0); Mean Platelet Volume 12.6 fL (9.4-12.4); Platelet Count 239 K/mcL (140-400); Red Blood Count 4.05 M/mcL (3.82-4.97); Red Cell Distribution Width 14.6 % (11.5-14.5)
[2021-02-12 02:13] LABS: Alanine Aminotransferase 49 Units/L (7-52); Albumin 3.4 g/dL (3.5-5.7); Alkaline Phosphatase 102 Units/L (34-104); Aspartate Amino Transferase 19 Units/L (13-39); BUN/Creatinine Ratio 24 (6-26); Bilirubin,Total 1.1 mg/dL (0.3-1.0); Blood Urea Nitrogen 14 mg/dL (8-23); Calcium 9.1 mg/dL (8.6-10.3); Carbon Dioxide 27 mEq/L (23-29); Chloride 103 mEq/L (98-107); Globulin 3.5 g/dL (2.4-3.5); Glucose 143 mg/dL (70-105); Osmolality,Calculated 289 (280-300); Potassium 4.2 mEq/L (3.5-5.1); Sodium 138 mEq/L (136-145); Total Protein 6.9 g/dL (6.4-8.9); eGFR For African Americans > 60 (> 60); eGFR For Non-African Americans > 60 (> 60)
[2021-02-12] MEDS: Levothyroxine 25 MCG TABLET PO SCH (05:31)
[2021-02-12] MEDS: MethylPREDNISolone 40 MG/ML VIAL IVP SCH (08:38)
[2021-02-12] MEDS: Piperacillin/Tazobactam 3.375 GM in 0.9 % Sodium Chloride Mini Bag 100 ML IVPB SCH ×2 (08:39→17:40)
[2021-02-12] MEDS: atenoloL 50 MG TABLET PO SCH (08:40)
[2021-02-12] MEDS: Loratadine 10 MG TABLET PO SCH (08:40)
[2021-02-12] MEDS ORDERED: Acetaminophen 325 MG TABLET PO PRN (10:22)
[2021-02-12] MEDS ORDERED: *HR* HYDROcodone/Acet 5/325 mg TABLET PO PRN ×2 (10:22)
[2021-02-12 11:33] LABS: ABG Base Excess 4 mEq/L (-2 to 3); ABG HCO3 28 mEq/L (21-27); ABG Oxygen Saturation 94 % (95-98); ABG PCO2 41 mmHg (35-45); ABG PH 7.44 pH Units (7.32-7.45); ABG PO2 69 mmHg (85-104); ABG TCO2 29 mEq/L (20-26)
[2021-02-12] MEDS: Ipratropium/Albuterol Neb 3 ML IH SCH ×4 (14:30→23:56)
[2021-02-12] MEDS ORDERED: MethylPREDNISolone 40 MG/ML VIAL IVP SCH (20:00)
[2021-02-12] MEDS: Sennosides/Docusate Sodium TABLET PO SCH (20:39)
[2021-02-13] MEDS: Piperacillin/Tazobactam 3.375 GM in 0.9 % Sodium Chloride Mini Bag 100 ML IVPB SCH ×3 (00:29→15:50)
[2021-02-13] MEDS: Ipratropium/Albuterol Neb 3 ML IH SCH ×4 (04:00→15:05)
[2021-02-13 05:27] LABS: Magnesium 2.2 mg/dL (1.6-2.6); Phosphorous 3.1 mg/dL (2.7-4.5)
[2021-02-13 05:28] LABS: Alanine Aminotransferase 70 Units/L (7-52); Albumin 3.4 g/dL (3.5-5.7); Alkaline Phosphatase 101 Units/L (34-104); Aspartate Amino Transferase 38 Units/L (13-39); BUN/Creatinine Ratio 25 (6-26); Bilirubin,Total 0.7 mg/dL (0.3-1.0); Blood Urea Nitrogen 18 mg/dL (8-23); Calcium 9.3 mg/dL (8.6-10.3); Carbon Dioxide 25 mEq/L (23-29); Chloride 104 mEq/L (98-107); Globulin 3.4 g/dL (2.4-3.5); Glucose 148 mg/dL (70-105); Osmolality,Calculated 295 (280-300); Potassium 4.3 mEq/L (3.5-5.1); Sodium 140 mEq/L (136-145); Total Protein 6.8 g/dL (6.4-8.9); eGFR For African Americans > 60 (> 60); eGFR For Non-African Americans > 60 (> 60)
[2021-02-13] MEDS: Levothyroxine 25 MCG TABLET PO SCH (06:02)
[2021-02-13] MEDS ORDERED: predniSONE 20 MG TABLET PO SCH (09:00)
[2021-02-13] MEDS ORDERED: Aspirin 81 MG TAB.CHEW PO SCH (09:00)
[2021-02-13] MEDS: atenoloL 50 MG TABLET PO SCH (09:36)
[2021-02-13] MEDS: Sennosides/Docusate Sodium TABLET PO SCH (09:36)
[2021-02-13] MEDS: Loratadine 10 MG TABLET PO SCH (09:37)
[2021-02-13 10:47] VITALS: BP 138/68
== END 2021-02-13 16:56 | disposition home or self-care (01) | DRG 417 ==
LOC: EMEROOARM 09:21 → 3BNU 09:21 → SUATTDRO 13:39 → 3BNU 14:24 → SUATTDRO 02-10 16:39
PROVIDERS: ADMIT Internal Medicine; ATTEND Internal Medicine

== ENCOUNTER 2021-06-29 00:02 | Inpatient (IN) ==
[2021-06-29] MEDS ORDERED: Naloxone 0.4 MG/ML INJ IVP PRN (04:31)
[2021-06-29] MEDS ORDERED: Ondansetron 4 MG/2 ML VIAL IVP PRN (04:31)
[2021-06-29] MEDS ORDERED: Ipratropium/Albuterol Neb 3 ML IH PRN (05:19)
[2021-06-29] MEDS: MethylPREDNISolone 40 MG/ML VIAL IVP SCH ×2 (05:38→17:04)
[2021-06-29] MEDS: 0.9 % Sodium Chloride 1,000 ML IVC SCH ×2 (05:38→17:03)
[2021-06-29 05:56] LABS: Basophils % 0.2 %; Hematocrit 38.5 % (35.3-44.9); Hemoglobin 11.4 g/dL (11.5-15.4); Immature Granulocytes % 0.8 % (0-4); Lymphocytes # 1.2 K/mcL (0.6-4.6); Lymphocytes % 4.9 %; Mean Corpuscular HGB Conc 29.6 g/dL (31.6-35.5); Mean Corpuscular Hemoglobin 28.4 pg (28.0-33.3); Mean Corpuscular Volume 95.8 fL (83.0-100.0); Mean Platelet Volume 11.4 fL (9.4-12.4); Monocytes # 1.6 K/mcL (0.0-1.3); Monocytes % 6.5 %; Platelet Count 523 K/mcL (140-400); Red Blood Count 4.02 M/mcL (3.82-4.97); Red Cell Distribution Width 17.1 % (11.5-14.5); Segmented Neutrophils % 87.6 %; White Blood Count 24.7 K/mcL (4.3-11.1)
[2021-06-29 05:59] LABS: Basophils # 0.1 K/mcL (0.0-0.2); Neutrophils # 21.6 K/mcL (1.6-8.9)
[2021-06-29 06:03] LABS: INR 1.3
[2021-06-29 06:12] LABS: Anisocytosis 1+ (Not Present); Platelet Estimate Increased (Normal)
[2021-06-29 06:36] LABS: Alanine Aminotransferase 8 Units/L (7-52); Albumin/Globulin Ratio 0.9 (1.1-2.2); Alkaline Phosphatase 116 Units/L (34-104); Aspartate Amino Transferase 13 Units/L (13-39); BUN/Creatinine Ratio 19 (6-26); Bilirubin,Direct 0.1 mg/dL (0.0-0.2); Bilirubin,Indirect 0.3 mg/dL (0.0-1.0); Bilirubin,Total 0.4 mg/dL (0.3-1.0); Blood Urea Nitrogen 11 mg/dL (8-23); Carbon Dioxide 24 mEq/L (23-29); Chloride 108 mEq/L (98-107); Globulin 3.5 g/dL (2.4-3.5); Glucose 118 mg/dL (70-105); Osmolality,Calculated 286 (280-300); Potassium 4.4 mEq/L (3.5-5.1); Sodium 138 mEq/L (136-145); Total Protein 6.5 g/dL (6.4-8.9); eGFR For African Americans > 60 (> 60); eGFR For Non-African Americans > 60 (> 60)
[2021-06-29] MEDS: Piperacillin/Tazobactam 3.375 GM in 0.9 % Sodium Chloride Mini Bag 100 ML IVPB SCH ×2 (07:42→17:04)
[2021-06-29] MEDS: Acetaminophen 325 MG TABLET PO PRN ×2 (07:42→15:51)
[2021-06-29 08:28] LABS: Bacteria,Urine Few per hpf (None-Few); Bilirubin,Urine Negative (Negative); Blood,Urine Negative (Negative); Clarity,Urine Clear (Clear); Color,Urine Light-Yellow (Yellow); Glucose,Urine (UA) 50 mg/dL (Normal); Ketones,Urine Negative (Negative); Leukocyte Esterase,Urine Negative (Negative); Mucus,Urine Few per lpf (None-Few); Nitrite,Urine Negative (Negative); PH,Urine 6.5 pH Units (5.0-8.0); Protein,Urine Trace mg/dL (Neg-Trace); RBC,Urine 0-3 per hpf (0-3); Specific Gravity,Urine 1.023 (1.010-1.025); Squamous Epithelial Cell,Urine Few per hpf (None-Few); Urobilinogen,Urine Normal (Normal)
[2021-06-29 11:18] LABS: C-Reactive Protein 202 mg/L (Less than 10)
[2021-06-29] MEDS ORDERED: *HR* OxyCODONE Immed Rel 5 MG TABLET PO PRN ×3 (11:25→12:34)
[2021-06-29] MEDS ORDERED: Sennosides/Docusate Sodium TABLET PO PRN (12:30)
[2021-06-29] MEDS ORDERED: *HR* HYDROmorphone (PF) 1 MG/ML SYRINGE IVP ONE (12:32)
[2021-06-30] MEDS: Piperacillin/Tazobactam 3.375 GM in 0.9 % Sodium Chloride Mini Bag 100 ML IVPB SCH ×3 (00:18→15:43)
[2021-06-30] MEDS: *HR* HYDROcodone/Acet 10/325 mg TABLET PO PRN ×3 (00:25→20:40)
[2021-06-30 02:57] LABS: Basophils % 0.1 %; Hematocrit 38.2 % (35.3-44.9); Hemoglobin 11.4 g/dL (11.5-15.4); Immature Granulocytes % 0.7 % (0-4); Lymphocytes # 0.9 K/mcL (0.6-4.6); Lymphocytes % 3.7 %; Mean Corpuscular HGB Conc 29.8 g/dL (31.6-35.5); Mean Corpuscular Hemoglobin 28.6 pg (28.0-33.3); Mean Platelet Volume 12.5 fL (9.4-12.4); Monocytes # 1.3 K/mcL (0.0-1.3); Monocytes % 5.2 %; Platelet Count 497 K/mcL (140-400); Red Blood Count 3.98 M/mcL (3.82-4.97); Red Cell Distribution Width 17.2 % (11.5-14.5); Segmented Neutrophils % 90.3 %
[2021-06-30 03:14] LABS: Neutrophils # 22.6 K/mcL (1.6-8.9)
[2021-06-30 03:16] LABS: BUN/Creatinine Ratio 18 (6-26); Blood Urea Nitrogen 9 mg/dL (8-23); Calcium 8.8 mg/dL (8.6-10.3); Carbon Dioxide 21 mEq/L (23-29); Chloride 111 mEq/L (98-107); Glucose 123 mg/dL (70-105); Osmolality,Calculated 294 (280-300); Sodium 142 mEq/L (136-145); eGFR For African Americans > 60 (> 60); eGFR For Non-African Americans > 60 (> 60)
[2021-06-30] MEDS: Levothyroxine 25 MCG TABLET PO SCH (06:17)
[2021-06-30] MEDS: MethylPREDNISolone 40 MG/ML VIAL IVP SCH (06:17)
[2021-06-30] MEDS: atenoloL 50 MG TABLET PO SCH (07:50)
[2021-06-30] MEDS: *HR* HYDROmorphone (PF) 1 MG/ML SYRINGE IVP PRN (11:42)
[2021-07-01] MEDS: Vancomycin 1,250 MG/262.5 ML IV.SOLN IVPB SCH ×3 (00:04→23:50)
[2021-07-01] MEDS: Piperacillin/Tazobactam 3.375 GM in 0.9 % Sodium Chloride Mini Bag 100 ML IVPB SCH ×4 (00:05→23:50)
[2021-07-01 04:40] LABS: Basophils % 0.1 %; Eosinophils % 0.3 %; Hematocrit 38.6 % (35.3-44.9); Hemoglobin 11.5 g/dL (11.5-15.4); Immature Granulocytes % 0.7 % (0-4); Lymphocytes # 1.7 K/mcL (0.6-4.6); Lymphocytes % 11.5 %; Mean Corpuscular HGB Conc 29.8 g/dL (31.6-35.5); Mean Corpuscular Hemoglobin 28.4 pg (28.0-33.3); Mean Corpuscular Volume 95.3 fL (83.0-100.0); Mean Platelet Volume 12.6 fL (9.4-12.4); Monocytes % 6.8 %; Neutrophils # 12.2 K/mcL (1.6-8.9); Platelet Count 426 K/mcL (140-400); Red Blood Count 4.05 M/mcL (3.82-4.97); Red Cell Distribution Width 17.1 % (11.5-14.5); Segmented Neutrophils % 80.6 %; White Blood Count 15.1 K/mcL (4.3-11.1)
[2021-07-01 04:56] LABS: BUN/Creatinine Ratio 26 (6-26); Blood Urea Nitrogen 14 mg/dL (8-23); C-Reactive Protein 88 mg/L (Less than 10); Calcium 8.8 mg/dL (8.6-10.3); Carbon Dioxide 23 mEq/L (23-29); Chloride 110 mEq/L (98-107); Glucose 72 mg/dL (70-105); Osmolality,Calculated 291 (280-300); Potassium 3.6 mEq/L (3.5-5.1); Sodium 141 mEq/L (136-145); eGFR For African Americans > 60 (> 60); eGFR For Non-African Americans > 60 (> 60)
[2021-07-01] MEDS: Levothyroxine 25 MCG TABLET PO SCH (06:25)
[2021-07-01] MEDS: atenoloL 50 MG TABLET PO SCH (07:52)
[2021-07-01] MEDS: *HR* HYDROcodone/Acet 10/325 mg TABLET PO PRN ×2 (07:53→15:54)
[2021-07-01] MEDS: *HR* HYDROmorphone (PF) 1 MG/ML SYRINGE IVP PRN ×2 (12:57→19:18)
[2021-07-02 02:32] LABS: Basophils % 0.2 %; Mean Platelet Volume 13.2 fL (9.4-12.4); Segmented Neutrophils % 77.5 %
[2021-07-02 02:34] LABS: Eosinophils # 0.1 K/mcL (0.0-0.6); Eosinophils % 0.8 %; Hemoglobin 12.2 g/dL (11.5-15.4); Immature Granulocytes % 0.6 % (0-4); Immature Platelets 4.1 % (1.1-6.1); Lymphocytes # 1.9 K/mcL (0.6-4.6); Lymphocytes % 10.9 %; Mean Corpuscular HGB Conc 30.5 g/dL (31.6-35.5); Mean Corpuscular Hemoglobin 28.8 pg (28.0-33.3); Mean Corpuscular Volume 94.3 fL (83.0-100.0); Monocytes # 1.7 K/mcL (0.0-1.3); Platelet Count 563 K/mcL (140-400); Red Blood Count 4.24 M/mcL (3.82-4.97); Red Cell Distribution Width 17.2 % (11.5-14.5); White Blood Count 17.1 K/mcL (4.3-11.1)
[2021-07-02 02:47] LABS: Neutrophils # 13.3 K/mcL (1.6-8.9)
[2021-07-02 02:49] LABS: BUN/Creatinine Ratio 22 (6-26); Blood Urea Nitrogen 11 mg/dL (8-23); Calcium 8.5 mg/dL (8.6-10.3); Carbon Dioxide 25 mEq/L (23-29); Chloride 105 mEq/L (98-107); Glucose 87 mg/dL (70-105); Osmolality,Calculated 287 (280-300); Potassium 3.4 mEq/L (3.5-5.1); Sodium 139 mEq/L (136-145); eGFR For African Americans > 60 (> 60); eGFR For Non-African Americans > 60 (> 60)
[2021-07-02] MEDS: *HR* HYDROcodone/Acet 10/325 mg TABLET PO PRN ×3 (04:13→20:29)
[2021-07-02] MEDS: Levothyroxine 25 MCG TABLET PO SCH (05:40)
[2021-07-02] MEDS: atenoloL 50 MG TABLET PO SCH (08:21)
[2021-07-02] MEDS: Piperacillin/Tazobactam 3.375 GM in 0.9 % Sodium Chloride Mini Bag 100 ML IVPB SCH (08:22)
[2021-07-02] MEDS: *HR* HYDROmorphone (PF) 1 MG/ML SYRINGE IVP PRN ×2 (08:40→16:50)
[2021-07-02] MEDS: cefTRIAXone 2,000 MG in Water for inj. (sterile) 20 ML IVP SCH (15:52)
[2021-07-02] MEDS: metroNIDAZOLE 500 MG TABLET PO SCH ×2 (15:52→19:34)
[2021-07-02] MEDS: lisinopriL 10 MG TABLET PO SCH (15:52)
[2021-07-03 04:53] LABS: Basophils # 0.1 K/mcL (0.0-0.2); Basophils % 0.2 %; Eosinophils # 0.2 K/mcL (0.0-0.6); Eosinophils % 0.7 %; Hematocrit 40.4 % (35.3-44.9); Hemoglobin 12.3 g/dL (11.5-15.4); Immature Granulocytes % 1.1 % (0-4); Lymphocytes # 1.9 K/mcL (0.6-4.6); Lymphocytes % 9.2 %; Mean Corpuscular HGB Conc 30.4 g/dL (31.6-35.5); Mean Corpuscular Hemoglobin 28.6 pg (28.0-33.3); Mean Platelet Volume 12.7 fL (9.4-12.4); Monocytes % 9.6 %; Neutrophils # 16.2 K/mcL (1.6-8.9); Platelet Count 545 K/mcL (140-400); Red Cell Distribution Width 17.2 % (11.5-14.5); Segmented Neutrophils % 79.2 %; White Blood Count 20.4 K/mcL (4.3-11.1)
[2021-07-03 05:16] LABS: BUN/Creatinine Ratio 14 (6-26); Blood Urea Nitrogen 6 mg/dL (8-23); Calcium 8.6 mg/dL (8.6-10.3); Carbon Dioxide 26 mEq/L (23-29); Chloride 104 mEq/L (98-107); Glucose 84 mg/dL (70-105); Osmolality,Calculated 283 (280-300); Potassium 3.4 mEq/L (3.5-5.1); Sodium 138 mEq/L (136-145); eGFR For African Americans > 60 (> 60); eGFR For Non-African Americans > 60 (> 60)
[2021-07-03] MEDS: Levothyroxine 25 MCG TABLET PO SCH (05:25)
[2021-07-03] MEDS: *HR* HYDROcodone/Acet 10/325 mg TABLET PO PRN ×3 (05:25→21:17)
[2021-07-03] MEDS: *HR* Enoxaparin 40 MG/0.4 ML SYRINGE SQ SCH (05:25)
[2021-07-03] MEDS: lisinopriL 10 MG TABLET PO SCH (07:55)
[2021-07-03] MEDS: Aspirin 81 MG TAB.CHEW PO SCH (07:55)
[2021-07-03] MEDS: atenoloL 50 MG TABLET PO SCH (07:56)
[2021-07-03] MEDS: metroNIDAZOLE 500 MG TABLET PO SCH ×3 (07:56→20:33)
[2021-07-03] MEDS ORDERED: lisinopriL 5 MG TABLET PO SCH (09:00)
[2021-07-03] MEDS ORDERED: lisinopriL 10 MG TABLET PO SCH (09:00)
[2021-07-03] MEDS: cefTRIAXone 2,000 MG in Water for inj. (sterile) 20 ML IVP SCH (15:21)
[2021-07-03] MEDS ORDERED: Isovue-370 500 ML BOTTLE IVP ONE (15:40)
[2021-07-04 03:34] LABS: BUN/Creatinine Ratio 14 (6-26); Blood Urea Nitrogen 7 mg/dL (8-23); Calcium 8.6 mg/dL (8.6-10.3); Carbon Dioxide 26 mEq/L (23-29); Chloride 105 mEq/L (98-107); Glucose 112 mg/dL (70-105); Magnesium 2.1 mg/dL (1.6-2.6); Osmolality,Calculated 285 (280-300); Potassium 3.7 mEq/L (3.5-5.1); Sodium 138 mEq/L (136-145); eGFR For African Americans > 60 (> 60); eGFR For Non-African Americans > 60 (> 60)
[2021-07-04 03:35] LABS: Albumin 2.8 g/dL (3.5-5.7); Albumin/Globulin Ratio 0.7 (1.1-2.2); Globulin 3.8 g/dL (2.4-3.5); Total Protein 6.6 g/dL (6.4-8.9)
[2021-07-04 03:47] LABS: Basophils % 0.2 %; Hemoglobin 12.1 g/dL (11.5-15.4); Mean Platelet Volume 12.1 fL (9.4-12.4); Red Cell Distribution Width 17.4 % (11.5-14.5)
[2021-07-04 03:49] LABS: Basophils # 0.1 K/mcL (0.0-0.2); Eosinophils # 0.2 K/mcL (0.0-0.6); Eosinophils % 0.6 %; Hematocrit 40.4 % (35.3-44.9); Immature Granulocytes % 1.5 % (0-4); Lymphocytes # 2.2 K/mcL (0.6-4.6); Lymphocytes % 8.8 %; Mean Corpuscular Hemoglobin 28.1 pg (28.0-33.3); Monocytes # 2.3 K/mcL (0.0-1.3); Monocytes % 9.3 %; Neutrophils # 19.9 K/mcL (1.6-8.9); Platelet Count 612 K/mcL (140-400); Segmented Neutrophils % 79.6 %
[2021-07-04] MEDS: *HR* Enoxaparin 40 MG/0.4 ML SYRINGE SQ SCH (04:14)
[2021-07-04] MEDS: Levothyroxine 25 MCG TABLET PO SCH (04:15)
[2021-07-04 05:50] LABS: Platelet Estimate Increased (Normal)
[2021-07-04] MEDS: *HR* HYDROcodone/Acet 7.5/325 mg TABLET PO PRN ×2 (06:00→15:10)
[2021-07-04] MEDS: Aspirin 81 MG TAB.CHEW PO SCH (07:23)
[2021-07-04] MEDS: metroNIDAZOLE 500 MG TABLET PO SCH ×3 (07:23→19:29)
[2021-07-04] MEDS: atenoloL 50 MG TABLET PO SCH (07:23)
[2021-07-04] MEDS: lisinopriL 10 MG TABLET PO SCH (07:23)
[2021-07-04] MEDS: cefTRIAXone 2,000 MG in Water for inj. (sterile) 20 ML IVP SCH (15:10)
[2021-07-04 17:26] LABS: RBC,Pleural Fluid < 2000 RBC/mcL
[2021-07-04 17:40] LABS: Glucose,Pleural Fluid < 10 mg/dL (No Ref Range); LDH,Pleural Fluid > 1200 Units/L (No Ref Range); Total Protein,Pleural Fluid 4.3 g/dL
[2021-07-04 19:31] LABS: Appearance of Pleural Fl Clear (Clear); Basophils,Pleural Fluid 0 %; Eosinophils,Pleural Fluid 0 %; Monocytes,Pleural Fluid 0 %
[2021-07-05] MEDS: *HR* HYDROcodone/Acet 7.5/325 mg TABLET PO PRN ×2 (01:29→09:40)
[2021-07-05] MEDS: Levothyroxine 25 MCG TABLET PO SCH (05:04)
[2021-07-05] MEDS: *HR* Enoxaparin 40 MG/0.4 ML SYRINGE SQ SCH (05:04)
[2021-07-05 06:05] LABS: Alanine Aminotransferase 19 Units/L (7-52); Albumin 2.8 g/dL (3.5-5.7); Albumin/Globulin Ratio 0.8 (1.1-2.2); Alkaline Phosphatase 117 Units/L (34-104); Aspartate Amino Transferase 12 Units/L (13-39); BUN/Creatinine Ratio 26 (6-26); Bilirubin,Total 0.4 mg/dL (0.3-1.0); Blood Urea Nitrogen 10 mg/dL (8-23); Calcium 8.8 mg/dL (8.6-10.3); Carbon Dioxide 25 mEq/L (23-29); Chloride 107 mEq/L (98-107); Globulin 3.7 g/dL (2.4-3.5); Glucose 93 mg/dL (70-105); Osmolality,Calculated 289 (280-300); Sodium 140 mEq/L (136-145); Total Protein 6.5 g/dL (6.4-8.9); eGFR For African Americans > 60 (> 60); eGFR For Non-African Americans > 60 (> 60)
[2021-07-05] MEDS: metroNIDAZOLE 500 MG TABLET PO SCH ×3 (07:38→19:21)
[2021-07-05] MEDS: Aspirin 81 MG TAB.CHEW PO SCH (07:38)
[2021-07-05] MEDS: lisinopriL 10 MG TABLET PO SCH (07:39)
[2021-07-05] MEDS: atenoloL 50 MG TABLET PO SCH (07:39)
[2021-07-05 09:26] LABS: Basophils % 0.2 %; Eosinophils # 0.1 K/mcL (0.0-0.6); Eosinophils % 0.6 %; Hematocrit 39.1 % (35.3-44.9); Hemoglobin 11.8 g/dL (11.5-15.4); Lymphocytes # 1.4 K/mcL (0.6-4.6); Lymphocytes % 7.5 %; Mean Corpuscular HGB Conc 30.2 g/dL (31.6-35.5); Mean Corpuscular Hemoglobin 28.7 pg (28.0-33.3); Mean Corpuscular Volume 95.1 fL (83.0-100.0); Monocytes # 0.9 K/mcL (0.0-1.3); Monocytes % 4.5 %; Neutrophils # 16.5 K/mcL (1.6-8.9); Platelet Count 670 K/mcL (140-400); Red Blood Count 4.11 M/mcL (3.82-4.97); Red Cell Distribution Width 17.3 % (11.5-14.5); Segmented Neutrophils % 86.2 %; White Blood Count 19.1 K/mcL (4.3-11.1)
[2021-07-05] MEDS: Lactobacillus 1 EACH CAP.SPRINK PO SCH (10:20)
[2021-07-05] MEDS: cefTRIAXone 2,000 MG in Water for inj. (sterile) 20 ML IVP SCH (15:21)
[2021-07-05] MEDS: *HR* HYDROcodone/Acet 10/325 mg TABLET PO PRN (15:22)
[2021-07-06] MEDS: *HR* HYDROcodone/Acet 10/325 mg TABLET PO PRN ×2 (02:22→19:57)
[2021-07-06] MEDS: Levothyroxine 25 MCG TABLET PO SCH (05:23)
[2021-07-06] MEDS: *HR* Enoxaparin 40 MG/0.4 ML SYRINGE SQ SCH (05:24)
[2021-07-06 06:28] LABS: Basophils # 0.1 K/mcL (0.0-0.2); Basophils % 0.3 %; Eosinophils # 0.1 K/mcL (0.0-0.6); Hematocrit 36.7 % (35.3-44.9); Hemoglobin 10.9 g/dL (11.5-15.4); Immature Granulocytes % 0.9 % (0-4); Lymphocytes # 1.4 K/mcL (0.6-4.6); Lymphocytes % 9.8 %; Mean Corpuscular HGB Conc 29.7 g/dL (31.6-35.5); Mean Corpuscular Volume 94.3 fL (83.0-100.0); Monocytes # 1.2 K/mcL (0.0-1.3); Monocytes % 8.3 %; Neutrophils # 11.8 K/mcL (1.6-8.9); Platelet Count 545 K/mcL (140-400); Red Blood Count 3.89 M/mcL (3.82-4.97); Red Cell Distribution Width 17.4 % (11.5-14.5); Segmented Neutrophils % 79.7 %; White Blood Count 14.7 K/mcL (4.3-11.1)
[2021-07-06 06:54] LABS: BUN/Creatinine Ratio 19 (6-26); Blood Urea Nitrogen 7 mg/dL (8-23); Calcium 8.5 mg/dL (8.6-10.3); Carbon Dioxide 27 mEq/L (23-29); Chloride 107 mEq/L (98-107); Glucose 98 mg/dL (70-105); Osmolality,Calculated 288 (280-300); Potassium 3.5 mEq/L (3.5-5.1); Sodium 140 mEq/L (136-145); eGFR For African Americans > 60 (> 60); eGFR For Non-African Americans > 60 (> 60)
[2021-07-06] MEDS: atenoloL 50 MG TABLET PO SCH (08:30)
[2021-07-06] MEDS: metroNIDAZOLE 500 MG TABLET PO SCH ×3 (08:30→19:52)
[2021-07-06] MEDS: Lactobacillus 1 EACH CAP.SPRINK PO SCH (08:30)
[2021-07-06] MEDS: lisinopriL 10 MG TABLET PO SCH (08:30)
[2021-07-06] MEDS: Aspirin 81 MG TAB.CHEW PO SCH (08:30)
[2021-07-06] MEDS: *HR* HYDROcodone/Acet 7.5/325 mg TABLET PO PRN (11:59)
[2021-07-06] MEDS: cefTRIAXone 2,000 MG in Water for inj. (sterile) 20 ML IVP SCH (15:51)
[2021-07-07 01:10] LABS: Basophils # 0.1 K/mcL (0.0-0.2); Basophils % 0.4 %; Eosinophils # 0.2 K/mcL (0.0-0.6); Eosinophils % 1.6 %; Hematocrit 35.5 % (35.3-44.9); Hemoglobin 10.7 g/dL (11.5-15.4); Immature Granulocytes % 0.9 % (0-4); Lymphocytes # 1.9 K/mcL (0.6-4.6); Lymphocytes % 13.2 %; Mean Corpuscular HGB Conc 30.1 g/dL (31.6-35.5); Mean Corpuscular Hemoglobin 28.2 pg (28.0-33.3); Mean Corpuscular Volume 93.7 fL (83.0-100.0); Monocytes # 1.3 K/mcL (0.0-1.3); Monocytes % 9.3 %; Neutrophils # 10.6 K/mcL (1.6-8.9); Platelet Count 562 K/mcL (140-400); Red Blood Count 3.79 M/mcL (3.82-4.97); Red Cell Distribution Width 17.5 % (11.5-14.5); Segmented Neutrophils % 74.6 %; White Blood Count 14.3 K/mcL (4.3-11.1)
[2021-07-07 01:28] LABS: BUN/Creatinine Ratio 20 (6-26); Blood Urea Nitrogen 8 mg/dL (8-23); Calcium 8.4 mg/dL (8.6-10.3); Carbon Dioxide 27 mEq/L (23-29); Chloride 107 mEq/L (98-107); Glucose 92 mg/dL (70-105); Osmolality,Calculated 290 (280-300); Potassium 3.5 mEq/L (3.5-5.1); Sodium 141 mEq/L (136-145); eGFR For African Americans > 60 (> 60); eGFR For Non-African Americans > 60 (> 60)
[2021-07-07] MEDS: *HR* Enoxaparin 40 MG/0.4 ML SYRINGE SQ SCH (05:37)
[2021-07-07] MEDS: Levothyroxine 25 MCG TABLET PO SCH (05:37)
[2021-07-07] MEDS: *HR* HYDROcodone/Acet 7.5/325 mg TABLET PO PRN (05:41)
[2021-07-07] MEDS ORDERED: Isovue-370 500 ML BOTTLE IVP ONE (09:39)
[2021-07-07] MEDS: metroNIDAZOLE 500 MG TABLET PO SCH ×3 (09:48→19:49)
[2021-07-07] MEDS: Aspirin 81 MG TAB.CHEW PO SCH (09:48)
[2021-07-07] MEDS: atenoloL 50 MG TABLET PO SCH (09:48)
[2021-07-07] MEDS: lisinopriL 10 MG TABLET PO SCH (09:48)
[2021-07-07] MEDS: Lactobacillus 1 EACH CAP.SPRINK PO SCH ×2 (09:48→19:49)
[2021-07-07] MEDS: *HR* HYDROcodone/Acet 10/325 mg TABLET PO PRN (16:29)
[2021-07-07] MEDS: cefTRIAXone 2,000 MG in Water for inj. (sterile) 20 ML IVP SCH (16:29)
[2021-07-07 19:04] LABS: Fluid Source for Albumin PLEURAL
[2021-07-08] MEDS: *HR* HYDROcodone/Acet 10/325 mg TABLET PO PRN ×2 (02:33→14:42)
[2021-07-08 05:33] LABS: Basophils % 0.3 %; Eosinophils # 0.2 K/mcL (0.0-0.6); Eosinophils % 1.1 %; Hematocrit 38.7 % (35.3-44.9); Hemoglobin 11.5 g/dL (11.5-15.4); Immature Granulocytes % 0.6 % (0-4); Lymphocytes # 1.5 K/mcL (0.6-4.6); Lymphocytes % 11.8 %; Mean Corpuscular HGB Conc 29.7 g/dL (31.6-35.5); Mean Corpuscular Volume 94.4 fL (83.0-100.0); Mean Platelet Volume 11.8 fL (9.4-12.4); Monocytes # 1.1 K/mcL (0.0-1.3); Monocytes % 8.4 %; Neutrophils # 10.2 K/mcL (1.6-8.9); Platelet Count 562 K/mcL (140-400); Red Cell Distribution Width 17.7 % (11.5-14.5); Segmented Neutrophils % 77.8 %; White Blood Count 13.1 K/mcL (4.3-11.1)
[2021-07-08] MEDS: *HR* Enoxaparin 40 MG/0.4 ML SYRINGE SQ SCH (05:41)
[2021-07-08] MEDS: Levothyroxine 25 MCG TABLET PO SCH (05:41)
[2021-07-08 05:49] LABS: BUN/Creatinine Ratio 14 (6-26); Blood Urea Nitrogen 6 mg/dL (8-23); Calcium 8.9 mg/dL (8.6-10.3); Carbon Dioxide 29 mEq/L (23-29); Chloride 105 mEq/L (98-107); Glucose 92 mg/dL (70-105); Osmolality,Calculated 287 (280-300); Potassium 3.7 mEq/L (3.5-5.1); Sodium 140 mEq/L (136-145); eGFR For African Americans > 60 (> 60); eGFR For Non-African Americans > 60 (> 60)
[2021-07-08] MEDS: metroNIDAZOLE 500 MG TABLET PO SCH ×3 (08:27→20:29)
[2021-07-08] MEDS: Aspirin 81 MG TAB.CHEW PO SCH (08:27)
[2021-07-08] MEDS: lisinopriL 10 MG TABLET PO SCH (08:27)
[2021-07-08] MEDS: Lactobacillus 1 EACH CAP.SPRINK PO SCH ×2 (08:28→20:29)
[2021-07-08] MEDS: atenoloL 50 MG TABLET PO SCH (08:28)
[2021-07-08] MEDS: *HR* HYDROcodone/Acet 7.5/325 mg TABLET PO PRN ×2 (08:37→20:29)
[2021-07-08] MEDS ORDERED: lisinopriL 10 MG TABLET PO ONE (11:02)
[2021-07-08] MEDS: cefTRIAXone 2,000 MG in Water for inj. (sterile) 20 ML IVP SCH (14:23)
[2021-07-09 01:48] LABS: Basophils # 0.1 K/mcL (0.0-0.2); Basophils % 0.4 %; Eosinophils # 0.2 K/mcL (0.0-0.6); Eosinophils % 1.3 %; Hematocrit 34.6 % (35.3-44.9); Hemoglobin 10.6 g/dL (11.5-15.4); Immature Granulocytes % 0.8 % (0-4); Lymphocytes # 1.7 K/mcL (0.6-4.6); Lymphocytes % 12.1 %; Mean Corpuscular HGB Conc 30.6 g/dL (31.6-35.5); Mean Corpuscular Hemoglobin 28.8 pg (28.0-33.3); Mean Platelet Volume 12.3 fL (9.4-12.4); Monocytes # 1.2 K/mcL (0.0-1.3); Monocytes % 8.4 %; Neutrophils # 10.6 K/mcL (1.6-8.9); Platelet Count 568 K/mcL (140-400); Red Blood Count 3.68 M/mcL (3.82-4.97); Red Cell Distribution Width 17.5 % (11.5-14.5); White Blood Count 13.8 K/mcL (4.3-11.1)
[2021-07-09 02:08] LABS: BUN/Creatinine Ratio 19 (6-26); Blood Urea Nitrogen 8 mg/dL (8-23); Calcium 8.4 mg/dL (8.6-10.3); Carbon Dioxide 27 mEq/L (23-29); Chloride 106 mEq/L (98-107); Glucose 102 mg/dL (70-105); Osmolality,Calculated 289 (280-300); Potassium 3.4 mEq/L (3.5-5.1); Sodium 140 mEq/L (136-145); eGFR For African Americans > 60 (> 60); eGFR For Non-African Americans > 60 (> 60)
[2021-07-09] MEDS: *HR* HYDROcodone/Acet 10/325 mg TABLET PO PRN ×4 (03:25→23:56)
[2021-07-09] MEDS: *HR* Enoxaparin 40 MG/0.4 ML SYRINGE SQ SCH (05:06)
[2021-07-09] MEDS: Levothyroxine 25 MCG TABLET PO SCH (05:08)
[2021-07-09] MEDS ORDERED: lisinopriL 10 MG TABLET PO SCH (09:00)
[2021-07-09] MEDS: metroNIDAZOLE 500 MG TABLET PO SCH ×3 (09:28→19:46)
[2021-07-09] MEDS: atenoloL 50 MG TABLET PO SCH (09:28)
[2021-07-09] MEDS: Aspirin 81 MG TAB.CHEW PO SCH (09:28)
[2021-07-09] MEDS: Lactobacillus 1 EACH CAP.SPRINK PO SCH ×2 (09:28→19:47)
[2021-07-09] MEDS ORDERED: Lidocaine -MPF 4% 5 ML AMPUL ONE (13:05)
[2021-07-09] MEDS ORDERED: *HR* Propofol 200 MG/20 ML VIAL IVP ONE (13:07)
[2021-07-09] MEDS ORDERED: Lidocaine -MPF 2% 5 ML VIAL ONE (13:08)
[2021-07-09] MEDS ORDERED: Ondansetron 4 MG/2 ML VIAL ONE (13:08)
[2021-07-09] MEDS ORDERED: Sugammadex Sodium 200 MG/2 ML VIAL IV ONE ×2 (13:08→15:08)
[2021-07-09] MEDS ORDERED: *HR* Rocuronium Bromide 50 MG/5 ML VIAL ONE (13:08)
[2021-07-09] MEDS ORDERED: *HR* Succinylcholine 200 MG/10 ML VIAL IVP ONE (13:08)
[2021-07-09] MEDS ORDERED: *HR* FentaNYL (PF) 100 MCG/2 ML VIAL ONE (13:43)
[2021-07-09] MEDS ORDERED: *HR* HYDROMORPHONE 2 MG/ML VIAL ONE (13:43)
[2021-07-09] MEDS ORDERED: *HR* Vasopressin 20 UNIT/ML VIAL ONE (14:12)
[2021-07-09] MEDS ORDERED: MetroNIDAZOLE 500 MG/100 ML 500 MG/100 ML BAG IVPB ONE ×2 (14:37→14:49)
[2021-07-09] MEDS: cefTRIAXone 2,000 MG in Water for inj. (sterile) 20 ML IVP SCH (15:00)
[2021-07-09] MEDS: *HR* FentaNYL (PF) 100 MCG/2 ML VIAL IVP PRN ×2 (15:43→16:14)
[2021-07-09] MEDS ORDERED: Acetaminophen IV 1,000 MG/100 ML BAG IVPB ONE (15:52)
[2021-07-09] MEDS ORDERED: Ketorolac 15 MG/ML VIAL IVP PRN ×2 (16:26→16:53)
[2021-07-09] MEDS ORDERED: Acetaminophen 325 MG TABLET PO PRN (16:53)
[2021-07-09] MEDS ORDERED: Ondansetron 4 MG/2 ML VIAL IVP PRN (16:53)
[2021-07-09] MEDS ORDERED: Naloxone 0.4 MG/ML INJ IVP PRN (16:53)
[2021-07-09] MEDS ORDERED: *HR* HYDROcodone/Acet 7.5/325 mg TABLET PO PRN (16:53)
[2021-07-09] MEDS: Ketorolac 30 MG/ML VIAL IVP SCH (17:39)
[2021-07-09] MEDS: Gabapentin 300 MG CAPSULE PO SCH (19:46)
[2021-07-10] MEDS: Ketorolac 30 MG/ML VIAL IVP SCH ×4 (01:39→16:31)
[2021-07-10] MEDS: *HR* Enoxaparin 40 MG/0.4 ML SYRINGE SQ SCH (06:44)
[2021-07-10] MEDS: Levothyroxine 25 MCG TABLET PO SCH (06:44)
[2021-07-10] MEDS: metroNIDAZOLE 500 MG TABLET PO SCH ×3 (07:22→20:15)
[2021-07-10] MEDS: Gabapentin 300 MG CAPSULE PO SCH ×3 (07:22→20:15)
[2021-07-10] MEDS: Lactobacillus 1 EACH CAP.SPRINK PO SCH ×2 (07:22→20:15)
[2021-07-10] MEDS: lisinopriL 10 MG TABLET PO SCH (07:22)
[2021-07-10] MEDS: Aspirin 81 MG TAB.CHEW PO SCH (07:22)
[2021-07-10] MEDS: atenoloL 50 MG TABLET PO SCH (07:22)
[2021-07-10 11:00] LABS: Basophils % 0.2 %; Eosinophils % 0.1 %; Hematocrit 39.1 % (35.3-44.9); Hemoglobin 11.5 g/dL (11.5-15.4); Immature Granulocytes % 0.6 % (0-4); Lymphocytes % 11.5 %; Mean Corpuscular HGB Conc 29.4 g/dL (31.6-35.5); Mean Corpuscular Hemoglobin 28.3 pg (28.0-33.3); Mean Corpuscular Volume 96.3 fL (83.0-100.0); Mean Platelet Volume 11.4 fL (9.4-12.4); Monocytes # 1.5 K/mcL (0.0-1.3); Monocytes % 8.8 %; Neutrophils # 13.8 K/mcL (1.6-8.9); Platelet Count 738 K/mcL (140-400); Red Blood Count 4.06 M/mcL (3.82-4.97); Red Cell Distribution Width 17.5 % (11.5-14.5); Segmented Neutrophils % 78.8 %; White Blood Count 17.5 K/mcL (4.3-11.1)
[2021-07-10 11:38] LABS: BUN/Creatinine Ratio 25 (6-26); Blood Urea Nitrogen 15 mg/dL (8-23); Calcium 9.1 mg/dL (8.6-10.3); Carbon Dioxide 26 mEq/L (23-29); Chloride 105 mEq/L (98-107); Glucose 105 mg/dL (70-105); Osmolality,Calculated 289 (280-300); Sodium 139 mEq/L (136-145); eGFR For African Americans > 60 (> 60); eGFR For Non-African Americans > 60 (> 60)
[2021-07-10] MEDS: *HR* HYDROcodone/Acet 5/325 mg TABLET PO PRN ×2 (14:39→20:14)
[2021-07-10] MEDS: cefTRIAXone 2,000 MG in Water for inj. (sterile) 20 ML IVP SCH (16:31)
[2021-07-10] MEDS: Ipratropium/Albuterol Neb 3 ML IH PRN (22:41)
[2021-07-11] MEDS: Ketorolac 30 MG/ML VIAL IVP SCH ×3 (00:02→11:40)
[2021-07-11] MEDS: *HR* HYDROcodone/Acet 5/325 mg TABLET PO PRN ×2 (02:58→07:31)
[2021-07-11] MEDS: *HR* Enoxaparin 40 MG/0.4 ML SYRINGE SQ SCH (05:52)
[2021-07-11] MEDS: Levothyroxine 25 MCG TABLET PO SCH (05:52)
[2021-07-11] MEDS: Ipratropium/Albuterol Neb 3 ML IH PRN (06:35)
[2021-07-11] MEDS: Gabapentin 300 MG CAPSULE PO SCH ×2 (07:31→14:36)
[2021-07-11] MEDS: Aspirin 81 MG TAB.CHEW PO SCH (07:31)
[2021-07-11] MEDS: lisinopriL 10 MG TABLET PO SCH (07:31)
[2021-07-11] MEDS: atenoloL 50 MG TABLET PO SCH (07:32)
[2021-07-11] MEDS: metroNIDAZOLE 500 MG TABLET PO SCH ×2 (07:32→14:36)
[2021-07-11] MEDS: Lactobacillus 1 EACH CAP.SPRINK PO SCH (07:32)
[2021-07-11 08:54] LABS: Hemoglobin 11.2 g/dL (11.5-15.4); Mean Corpuscular HGB Conc 30.3 g/dL (31.6-35.5); Mean Corpuscular Hemoglobin 28.9 pg (28.0-33.3); Mean Corpuscular Volume 95.6 fL (83.0-100.0); Platelet Count 683 K/mcL (140-400); Red Blood Count 3.87 M/mcL (3.82-4.97); Red Cell Distribution Width 17.5 % (11.5-14.5); White Blood Count 14.4 K/mcL (4.3-11.1)
[2021-07-11 08:55] LABS: Basophils # 0.1 K/mcL (0.0-0.2); Basophils % 0.3 %; Eosinophils # 0.1 K/mcL (0.0-0.6); Eosinophils % 0.9 %; Immature Granulocytes % 0.6 % (0-4); Lymphocytes # 1.7 K/mcL (0.6-4.6); Monocytes # 0.8 K/mcL (0.0-1.3); Monocytes % 5.4 %; Neutrophils # 11.7 K/mcL (1.6-8.9); Segmented Neutrophils % 80.8 %
[2021-07-11 09:11] LABS: BUN/Creatinine Ratio 26 (6-26); Blood Urea Nitrogen 15 mg/dL (8-23); Calcium 8.8 mg/dL (8.6-10.3); Carbon Dioxide 25 mEq/L (23-29); Chloride 106 mEq/L (98-107); Glucose 140 mg/dL (70-105); Osmolality,Calculated 293 (280-300); Potassium 3.5 mEq/L (3.5-5.1); Sodium 140 mEq/L (136-145); eGFR For African Americans > 60 (> 60); eGFR For Non-African Americans > 60 (> 60)
[2021-07-11 11:27] VITALS: O2SAT 97
[2021-07-11] MEDS: cefTRIAXone 2,000 MG in Water for inj. (sterile) 20 ML IVP SCH (14:36)
[2021-07-11] MEDS ORDERED: FLU Vac QV 21-22 (6Month+)/PF 0.5 ML SYRINGE IM ONE (15:03)
[2021-07-11 15:44] VITALS: BP 122/60; PULSE 78; TEMP 98
== END 2021-07-11 16:42 | disposition home health service (06) | DRG 856 ==
LOC: SUATTDRO 03:35 → 2ANU 03:35 → 2NNU 07-09 15:11
PROVIDERS: ADMIT Internal Medicine; ATTEND Family Medicine
PROC: IRDRAIN (2021-06-29 12:00)

== ENCOUNTER 2021-09-01 08:13 | Inpatient (IN) ==
[2021-09-01] MEDS ORDERED: Naloxone 0.4 MG/ML INJ IVP PRN (14:25)
[2021-09-01] MEDS ORDERED: Furosemide 40 MG/4 ML VIAL IVP ONE (14:32)
[2021-09-01] MEDS ORDERED: Ipratropium 1 PUFF INHALER IH PRN (14:33)
[2021-09-01] MEDS ORDERED: *HR* HYDROcodone/Acet 10/325 mg TABLET PO PRN (16:13)
[2021-09-01] MEDS ORDERED: *HR* Methotrexate 2.5 MG TABLET PO SCH (17:00)
[2021-09-01] MEDS ORDERED: Remdesivir 200 MG in 0.9 % Sodium Chloride 100 ML IVPB ONE (19:00)
[2021-09-01] MEDS: Budesonide/Formoterol 160/4.5 1 PUFF INH IH SCH (19:42)
[2021-09-02 01:10] LABS: Hematocrit 33.7 % (35.3-44.9); Hemoglobin 10.6 g/dL (11.5-15.4); Immature Granulocytes % 0.9 % (0-4); Lymphocytes # 0.6 K/mcL (0.6-4.6); Lymphocytes % 26.4 %; Mean Corpuscular HGB Conc 31.5 g/dL (31.6-35.5); Mean Corpuscular Hemoglobin 29.5 pg (28.0-33.3); Mean Corpuscular Volume 93.9 fL (83.0-100.0); Mean Platelet Volume 11.4 fL (9.4-12.4); Monocytes # 0.2 K/mcL (0.0-1.3); Monocytes % 9.5 %; Neutrophils # 1.4 K/mcL (1.6-8.9); Platelet Count 253 K/mcL (140-400); Red Blood Count 3.59 M/mcL (3.82-4.97); Red Cell Distribution Width 22.2 % (11.5-14.5); Segmented Neutrophils % 63.2 %; White Blood Count 2.2 K/mcL (4.3-11.1)
[2021-09-02 01:30] LABS: Albumin 2.9 g/dL (3.5-5.7); Albumin/Globulin Ratio 0.9 (1.1-2.2); Bilirubin,Direct 0.1 mg/dL (0.0-0.2); Bilirubin,Indirect 0.3 mg/dL (0.0-1.0); Bilirubin,Total 0.4 mg/dL (0.3-1.0); Globulin 3.4 g/dL (2.4-3.5); Total Protein 6.3 g/dL (6.4-8.9)
[2021-09-02 01:31] LABS: BUN/Creatinine Ratio 25 (6-26); Blood Urea Nitrogen 8 mg/dL (8-23); Calcium 7.8 mg/dL (8.6-10.3); Carbon Dioxide 18 mEq/L (23-29); Chloride 110 mEq/L (98-107); Glucose 106 mg/dL (70-105); Osmolality,Calculated 289 (280-300); Potassium 2.7 mEq/L (3.5-5.1); Sodium 140 mEq/L (136-145); eGFR For African Americans > 60 (> 60); eGFR For Non-African Americans > 60 (> 60)
[2021-09-02] MEDS: Levothyroxine 25 MCG TABLET PO SCH (05:32)
[2021-09-02] MEDS: Calcium Gluconate 1gm/50mL 1 GM/50 ML BAG IVPB SCH ×2 (05:36→06:43)
[2021-09-02] MEDS: *HR* Enoxaparin 40 MG/0.4 ML SYRINGE SQ SCH (05:42)
[2021-09-02] MEDS: Aspirin 81 MG TAB.CHEW PO SCH (07:42)
[2021-09-02] MEDS: atenoloL 50 MG TABLET PO SCH (07:42)
[2021-09-02] MEDS: Budesonide/Formoterol 160/4.5 1 PUFF INH IH SCH ×2 (08:48→20:08)
[2021-09-02] MEDS: cefTRIAXone 1,000 MG in 0.9 % Sodium Chloride Mini Bag 100 ML IVPB SCH (13:00)
[2021-09-02] MEDS: Remdesivir 100 MG in 0.9 % Sodium Chloride 100 ML IVPB SCH (17:09)
[2021-09-03 03:26] LABS: Hematocrit 35.7 % (35.3-44.9); Hemoglobin 11.4 g/dL (11.5-15.4); Immature Granulocytes % 0.2 % (0-4); Lymphocytes # 0.5 K/mcL (0.6-4.6); Lymphocytes % 9.8 %; Mean Corpuscular HGB Conc 31.9 g/dL (31.6-35.5); Mean Corpuscular Hemoglobin 29.8 pg (28.0-33.3); Mean Corpuscular Volume 93.2 fL (83.0-100.0); Mean Platelet Volume 11.4 fL (9.4-12.4); Monocytes # 0.1 K/mcL (0.0-1.3); Monocytes % 2.3 %; Neutrophils # 4.2 K/mcL (1.6-8.9); Platelet Count 341 K/mcL (140-400); Red Blood Count 3.83 M/mcL (3.82-4.97); Red Cell Distribution Width 22.8 % (11.5-14.5); Segmented Neutrophils % 87.7 %
[2021-09-03 03:28] LABS: White Blood Count 4.8 K/mcL (4.3-11.1)
[2021-09-03 03:58] LABS: BUN/Creatinine Ratio 28 (6-26); Blood Urea Nitrogen 10 mg/dL (8-23); Calcium 8.5 mg/dL (8.6-10.3); Carbon Dioxide 19 mEq/L (23-29); Chloride 114 mEq/L (98-107); Glucose 122 mg/dL (70-105); Magnesium 2.1 mg/dL (1.6-2.6); Osmolality,Calculated 294 (280-300); Phosphorous 1.9 mg/dL (2.7-4.5); Potassium 3.4 mEq/L (3.5-5.1); Sodium 142 mEq/L (136-145); eGFR For African Americans > 60 (> 60); eGFR For Non-African Americans > 60 (> 60)
[2021-09-03 04:03] LABS: Albumin 2.9 g/dL (3.5-5.7); Albumin/Globulin Ratio 0.8 (1.1-2.2); Bilirubin,Direct 0.2 mg/dL (0.0-0.2); Bilirubin,Indirect 0.2 mg/dL (0.0-1.0); Bilirubin,Total 0.4 mg/dL (0.3-1.0); Globulin 3.7 g/dL (2.4-3.5); Total Protein 6.6 g/dL (6.4-8.9)
[2021-09-03] MEDS: *HR* Enoxaparin 40 MG/0.4 ML SYRINGE SQ SCH (05:34)
[2021-09-03] MEDS: Levothyroxine 25 MCG TABLET PO SCH (05:34)
[2021-09-03] MEDS: Budesonide/Formoterol 160/4.5 1 PUFF INH IH SCH ×2 (07:46→20:05)
[2021-09-03] MEDS: atenoloL 50 MG TABLET PO SCH (09:21)
[2021-09-03] MEDS: Furosemide 40 MG/4 ML VIAL IVP SCH (09:21)
[2021-09-03] MEDS: Aspirin 81 MG TAB.CHEW PO SCH (09:21)
[2021-09-03] MEDS: cefTRIAXone 1,000 MG in 0.9 % Sodium Chloride Mini Bag 100 ML IVPB SCH (12:07)
[2021-09-03] MEDS: Remdesivir 100 MG in 0.9 % Sodium Chloride 100 ML IVPB SCH (17:18)
[2021-09-04] MEDS: *HR* Enoxaparin 40 MG/0.4 ML SYRINGE SQ SCH (05:31)
[2021-09-04] MEDS: Levothyroxine 25 MCG TABLET PO SCH (05:31)
[2021-09-04] MEDS: Budesonide/Formoterol 160/4.5 1 PUFF INH IH SCH ×2 (07:24→19:38)
[2021-09-04] MEDS: Aspirin 81 MG TAB.CHEW PO SCH (09:03)
[2021-09-04] MEDS: atenoloL 50 MG TABLET PO SCH (09:03)
[2021-09-04] MEDS: Furosemide 40 MG/4 ML VIAL IVP SCH (09:03)
[2021-09-04 12:44] LABS: Basophils % 0.1 %
[2021-09-04 13:07] LABS: Immature Granulocytes % 0.2 % (0-4); Monocytes % 2.2 %; Red Cell Distribution Width 23.3 % (11.5-14.5)
[2021-09-04 13:09] LABS: Hematocrit 39.3 % (35.3-44.9); Hemoglobin 12.2 g/dL (11.5-15.4); Immature Platelets 6.8 % (1.1-6.1); Lymphocytes # 0.2 K/mcL (0.6-4.6); Lymphocytes % 2.9 %; Mean Corpuscular Hemoglobin 28.6 pg (28.0-33.3); Mean Corpuscular Volume 92.3 fL (83.0-100.0); Mean Platelet Volume 14.1 fL (9.4-12.4); Monocytes # 0.2 K/mcL (0.0-1.3); Nucleated Red Blood Cells 0.2 /100 WBC (0); Platelet Count 395 K/mcL (140-400); Red Blood Count 4.26 M/mcL (3.82-4.97); Segmented Neutrophils % 94.6 %; White Blood Count 8.3 K/mcL (4.3-11.1)
[2021-09-04 13:25] LABS: Neutrophils # 7.9 K/mcL (1.6-8.9)
[2021-09-04 13:45] LABS: Alanine Aminotransferase 17 Units/L (7-52); Albumin 3.2 g/dL (3.5-5.7); Albumin/Globulin Ratio 0.9 (1.1-2.2); Alkaline Phosphatase 100 Units/L (34-104); Aspartate Amino Transferase 45 Units/L (13-39); Bilirubin,Direct 0.2 mg/dL (0.0-0.2); Bilirubin,Indirect 0.4 mg/dL (0.0-1.0); Bilirubin,Total 0.6 mg/dL (0.3-1.0); Blood Urea Nitrogen 10 mg/dL (8-23); Calcium 8.5 mg/dL (8.6-10.3); Carbon Dioxide 21 mEq/L (23-29); Chloride 109 mEq/L (98-107); Globulin 3.6 g/dL (2.4-3.5); Glucose 117 mg/dL (70-105); Osmolality,Calculated 294 (280-300); Phosphorous 1.6 mg/dL (2.7-4.5); Potassium 2.9 mEq/L (3.5-5.1); Sodium 142 mEq/L (136-145); Total Protein 6.8 g/dL (6.4-8.9)
[2021-09-04 14:04] LABS: BUN/Creatinine Ratio 23 (6-26); eGFR For African Americans > 60 (> 60); eGFR For Non-African Americans > 60 (> 60)
[2021-09-04 14:49] LABS: Anisocytosis 1+ (Not Present); Hypochromasia Present (Not Present)
[2021-09-04 14:50] LABS: Platelet Estimate Normal (Normal)
[2021-09-04] MEDS: Remdesivir 100 MG in 0.9 % Sodium Chloride 100 ML IVPB SCH (19:57)
[2021-09-05] MEDS: *HR* Enoxaparin 40 MG/0.4 ML SYRINGE SQ SCH (05:16)
[2021-09-05] MEDS: Levothyroxine 25 MCG TABLET PO SCH (05:16)
[2021-09-05] MEDS: Budesonide/Formoterol 160/4.5 1 PUFF INH IH SCH ×2 (07:33→20:11)
[2021-09-05] MEDS: Aspirin 81 MG TAB.CHEW PO SCH (09:03)
[2021-09-05] MEDS: Furosemide 40 MG/4 ML VIAL IVP SCH (09:03)
[2021-09-05] MEDS: atenoloL 50 MG TABLET PO SCH (09:04)
[2021-09-05 13:25] LABS: Hematocrit 38.8 % (35.3-44.9); Hemoglobin 12.7 g/dL (11.5-15.4); Immature Granulocytes % 0.4 % (0-4); Lymphocytes # 0.3 K/mcL (0.6-4.6); Lymphocytes % 2.7 %; Mean Corpuscular HGB Conc 32.7 g/dL (31.6-35.5); Mean Corpuscular Hemoglobin 29.9 pg (28.0-33.3); Mean Corpuscular Volume 91.3 fL (83.0-100.0); Mean Platelet Volume 12.5 fL (9.4-12.4); Monocytes # 0.2 K/mcL (0.0-1.3); Monocytes % 1.9 %; Neutrophils # 8.9 K/mcL (1.6-8.9); Platelet Count 462 K/mcL (140-400); Red Blood Count 4.25 M/mcL (3.82-4.97); Red Cell Distribution Width 22.4 % (11.5-14.5); White Blood Count 9.4 K/mcL (4.3-11.1)
[2021-09-05 13:43] LABS: BUN/Creatinine Ratio 24 (6-26); Blood Urea Nitrogen 11 mg/dL (8-23); Calcium 8.4 mg/dL (8.6-10.3); Carbon Dioxide 21 mEq/L (23-29); Chloride 107 mEq/L (98-107); Glucose 145 mg/dL (70-105); Osmolality,Calculated 288 (280-300); Sodium 138 mEq/L (136-145); eGFR For African Americans > 60 (> 60); eGFR For Non-African Americans > 60 (> 60)
[2021-09-05 15:42] LABS: Magnesium 1.7 mg/dL (1.6-2.6); Phosphorous 1.5 mg/dL (2.7-4.5)
[2021-09-05] MEDS: Remdesivir 100 MG in 0.9 % Sodium Chloride 100 ML IVPB SCH (19:41)
[2021-09-06] MEDS: *HR* Enoxaparin 40 MG/0.4 ML SYRINGE SQ SCH (06:08)
[2021-09-06] MEDS: Levothyroxine 25 MCG TABLET PO SCH (06:09)
[2021-09-06 06:59] LABS: Basophils % 0.1 %; Hematocrit 41.9 % (35.3-44.9); Hemoglobin 12.8 g/dL (11.5-15.4); Immature Granulocytes % 0.6 % (0-4); Lymphocytes # 0.7 K/mcL (0.6-4.6); Lymphocytes % 5.9 %; Mean Corpuscular HGB Conc 30.5 g/dL (31.6-35.5); Mean Corpuscular Hemoglobin 28.5 pg (28.0-33.3); Mean Corpuscular Volume 93.3 fL (83.0-100.0); Mean Platelet Volume 12.3 fL (9.4-12.4); Monocytes # 0.7 K/mcL (0.0-1.3); Monocytes % 5.7 %; Platelet Count 443 K/mcL (140-400); Red Blood Count 4.49 M/mcL (3.82-4.97); Red Cell Distribution Width 22.5 % (11.5-14.5); Segmented Neutrophils % 87.7 %; White Blood Count 11.5 K/mcL (4.3-11.1)
[2021-09-06 07:11] LABS: Alanine Aminotransferase 14 Units/L (7-52); Albumin 3.2 g/dL (3.5-5.7); Albumin/Globulin Ratio 0.9 (1.1-2.2); Alkaline Phosphatase 105 Units/L (34-104); Aspartate Amino Transferase 24 Units/L (13-39); BUN/Creatinine Ratio 30 (6-26); Bilirubin,Total 0.7 mg/dL (0.3-1.0); Blood Urea Nitrogen 12 mg/dL (8-23); Calcium 8.7 mg/dL (8.6-10.3); Carbon Dioxide 21 mEq/L (23-29); Chloride 110 mEq/L (98-107); Globulin 3.6 g/dL (2.4-3.5); Glucose 70 mg/dL (70-105); Magnesium 1.8 mg/dL (1.6-2.6); Osmolality,Calculated 292 (280-300); Potassium 3.1 mEq/L (3.5-5.1); Sodium 142 mEq/L (136-145); Total Protein 6.8 g/dL (6.4-8.9); eGFR For African Americans > 60 (> 60); eGFR For Non-African Americans > 60 (> 60)
[2021-09-06 07:39] VITALS: BP 164/82; PULSE 68; TEMP 98.3
[2021-09-06] MEDS: Budesonide/Formoterol 160/4.5 1 PUFF INH IH SCH (07:46)
[2021-09-06] MEDS ORDERED: Potassium Phosphate 44 MEQ in 0.9 % Sodium Chloride 250 ML IVPB ONE (09:00)
[2021-09-06] MEDS: atenoloL 50 MG TABLET PO SCH (09:30)
[2021-09-06] MEDS: Aspirin 81 MG TAB.CHEW PO SCH (09:31)
[2021-09-06] MEDS: Furosemide 40 MG/4 ML VIAL IVP SCH (09:31)
[2021-09-06 14:44] VITALS: O2SAT 95
== END 2021-09-06 17:08 | disposition home health service (06) | DRG 871 ==
LOC: 3BNU → SUATTDRO 14:25
PROVIDERS: ADMIT Internal Medicine; ATTEND Family Medicine

== ENCOUNTER 2021-09-13 12:07 | Inpatient (IN) ==
[2021-09-13] MEDS ORDERED: Naloxone 0.4 MG/ML INJ IVP PRN (16:16)
[2021-09-13] MEDS ORDERED: Ketorolac 30 MG/ML VIAL IVP ONE (23:28)
[2021-09-14 05:12] LABS: BUN/Creatinine Ratio 22 (6-26); Blood Urea Nitrogen 10 mg/dL (8-23); Calcium 8.3 mg/dL (8.6-10.3); Carbon Dioxide 20 mEq/L (23-29); Chloride 109 mEq/L (98-107); Glucose 58 mg/dL (70-105); Osmolality,Calculated 281 (280-300); Potassium 4.2 mEq/L (3.5-5.1); Sodium 137 mEq/L (136-145); eGFR For African Americans > 60 (> 60); eGFR For Non-African Americans > 60 (> 60)
[2021-09-14] MEDS ORDERED: Ketorolac 30 MG/ML VIAL IVP ONE (06:32)
[2021-09-14 09:35] LABS: Basophils % 0.1 %; Eosinophils % 0.6 %; Hematocrit 37.4 % (35.3-44.9); Hemoglobin 11.6 g/dL (11.5-15.4); Lymphocytes # 0.8 K/mcL (0.6-4.6); Mean Corpuscular Hemoglobin 30.4 pg (28.0-33.3); Mean Corpuscular Volume 98.2 fL (83.0-100.0); Mean Platelet Volume 11.3 fL (9.4-12.4); Monocytes # 0.3 K/mcL (0.0-1.3); Monocytes % 4.8 %; Neutrophils # 5.9 K/mcL (1.6-8.9); Platelet Count 311 K/mcL (140-400); Red Blood Count 3.81 M/mcL (3.82-4.97); Red Cell Distribution Width 21.8 % (11.5-14.5); Segmented Neutrophils % 82.5 %; White Blood Count 7.1 K/mcL (4.3-11.1)
[2021-09-14] MEDS: *HR* HYDROcodone/Acet 10/325 mg TABLET PO PRN (20:22)
[2021-09-15 03:54] LABS: BUN/Creatinine Ratio 26 (6-26); Blood Urea Nitrogen 9 mg/dL (8-23); Calcium 8.5 mg/dL (8.6-10.3); Carbon Dioxide 21 mEq/L (23-29); Chloride 111 mEq/L (98-107); Glucose 80 mg/dL (70-105); Osmolality,Calculated 282 (280-300); Potassium 3.6 mEq/L (3.5-5.1); Sodium 137 mEq/L (136-145); eGFR For African Americans > 60 (> 60); eGFR For Non-African Americans > 60 (> 60)
[2021-09-15 04:01] LABS: Basophils % 0.1 %; Eosinophils # 0.1 K/mcL (0.0-0.6); Eosinophils % 1.4 %; Hematocrit 37.9 % (35.3-44.9); Immature Granulocytes % 1.1 % (0-4); Lymphocytes # 0.8 K/mcL (0.6-4.6); Lymphocytes % 8.9 %; Mean Corpuscular HGB Conc 31.7 g/dL (31.6-35.5); Mean Corpuscular Hemoglobin 30.8 pg (28.0-33.3); Mean Corpuscular Volume 97.4 fL (83.0-100.0); Mean Platelet Volume 12.5 fL (9.4-12.4); Monocytes # 0.4 K/mcL (0.0-1.3); Neutrophils # 7.1 K/mcL (1.6-8.9); Platelet Count 325 K/mcL (140-400); Red Blood Count 3.89 M/mcL (3.82-4.97); Red Cell Distribution Width 21.6 % (11.5-14.5); Segmented Neutrophils % 83.5 %; White Blood Count 8.5 K/mcL (4.3-11.1)
[2021-09-15] MEDS: Levothyroxine 25 MCG TABLET PO SCH (05:48)
[2021-09-15] MEDS: *HR* HYDROcodone/Acet 10/325 mg TABLET PO PRN ×2 (05:48→15:36)
[2021-09-15] MEDS ORDERED: *HR* Metoprolol 5 MG/5 ML VIAL IVP ONE ×2 (07:57→08:02)
[2021-09-15] MEDS: atenoloL 50 MG TABLET PO SCH (08:06)
[2021-09-15] MEDS: Aspirin 81 MG TAB.CHEW PO SCH (08:06)
[2021-09-15] MEDS ORDERED: *HR* Methotrexate 2.5 MG TABLET PO SCH (09:00)
[2021-09-15 14:34] LABS: ABG Base Excess -4 mEq/L (-2 to 3); ABG HCO3 19 mEq/L (21-27); ABG Oxygen Saturation 92 % (95-98); ABG PCO2 28 mmHg (35-45); ABG PH 7.44 pH Units (7.32-7.45); ABG PO2 60 mmHg (85-104); ABG TCO2 20 mEq/L (20-26)
[2021-09-15] MEDS ORDERED: Azithromycin 500 MG in 0.9 % Sodium Chloride 250 ML IVPB SCH (15:00)
[2021-09-15] MEDS: Ipratropium/Albuterol Neb 3 ML IH SCH ×3 (15:25→23:22)
[2021-09-15] MEDS ORDERED: Ketorolac 30 MG/ML VIAL IVP ONE ×2 (16:28→19:48)
[2021-09-16] MEDS: Ipratropium/Albuterol Neb 3 ML IH SCH ×6 (03:31→23:53)
[2021-09-16] MEDS: *HR* HYDROcodone/Acet 10/325 mg TABLET PO PRN ×3 (03:32→23:34)
[2021-09-16] MEDS: Levothyroxine 25 MCG TABLET PO SCH (06:53)
[2021-09-16 07:00] LABS: Basophils % 0.1 %; Eosinophils % 0.2 %; Hematocrit 37.1 % (35.3-44.9); Hemoglobin 11.7 g/dL (11.5-15.4); Immature Granulocytes % 0.6 % (0-4); Lymphocytes # 0.5 K/mcL (0.6-4.6); Lymphocytes % 3.1 %; Mean Corpuscular HGB Conc 31.5 g/dL (31.6-35.5); Mean Corpuscular Volume 98.4 fL (83.0-100.0); Mean Platelet Volume 11.3 fL (9.4-12.4); Monocytes # 0.4 K/mcL (0.0-1.3); Neutrophils # 13.4 K/mcL (1.6-8.9); Platelet Count 286 K/mcL (140-400); Red Blood Count 3.77 M/mcL (3.82-4.97); Red Cell Distribution Width 21.9 % (11.5-14.5); White Blood Count 14.4 K/mcL (4.3-11.1)
[2021-09-16 07:14] LABS: BUN/Creatinine Ratio 21 (6-26); Blood Urea Nitrogen 10 mg/dL (8-23); Calcium 8.3 mg/dL (8.6-10.3); Carbon Dioxide 22 mEq/L (23-29); Chloride 107 mEq/L (98-107); Glucose 101 mg/dL (70-105); Osmolality,Calculated 281 (280-300); Potassium 3.9 mEq/L (3.5-5.1); Sodium 136 mEq/L (136-145); eGFR For African Americans > 60 (> 60); eGFR For Non-African Americans > 60 (> 60)
[2021-09-16] MEDS: Aspirin 81 MG TAB.CHEW PO SCH (08:02)
[2021-09-16] MEDS: atenoloL 50 MG TABLET PO SCH (08:02)
[2021-09-16] MEDS: levoFLOXacin 750 MG/150 ML 750 MG/150 ML BAG IVPB SCH (08:17)
[2021-09-16] MEDS ORDERED: *HR* Metoprolol 5 MG/5 ML VIAL IVP PRN (09:20)
[2021-09-16] MEDS ORDERED: *HR* Metoprolol 5 MG/5 ML VIAL IVP ONE (09:27)
[2021-09-16] MEDS ORDERED: 0.9 % Sodium Chloride 500 ML IVC SCH (10:00)
[2021-09-16 10:02] LABS: Magnesium 1.9 mg/dL (1.6-2.6)
[2021-09-16 10:03] LABS: Troponin I 0.03 ng/mL (< 0.04)
[2021-09-17 01:22] LABS: Basophils % 0.1 %; Eosinophils # 0.1 K/mcL (0.0-0.6); Eosinophils % 0.8 %; Hematocrit 35.1 % (35.3-44.9); Hemoglobin 11.1 g/dL (11.5-15.4); Immature Granulocytes % 0.4 % (0-4); Lymphocytes # 0.7 K/mcL (0.6-4.6); Lymphocytes % 6.5 %; Mean Corpuscular HGB Conc 31.6 g/dL (31.6-35.5); Mean Corpuscular Hemoglobin 31.3 pg (28.0-33.3); Mean Corpuscular Volume 98.9 fL (83.0-100.0); Mean Platelet Volume 11.3 fL (9.4-12.4); Monocytes # 0.2 K/mcL (0.0-1.3); Monocytes % 1.9 %; Neutrophils # 9.1 K/mcL (1.6-8.9); Platelet Count 276 K/mcL (140-400); Red Blood Count 3.55 M/mcL (3.82-4.97); Red Cell Distribution Width 21.9 % (11.5-14.5); Segmented Neutrophils % 90.3 %; White Blood Count 10.1 K/mcL (4.3-11.1)
[2021-09-17] MEDS: Ipratropium/Albuterol Neb 3 ML IH SCH ×6 (03:55→23:07)
[2021-09-17] MEDS: Levothyroxine 25 MCG TABLET PO SCH (06:05)
[2021-09-17] MEDS: atenoloL 50 MG TABLET PO SCH (08:10)
[2021-09-17] MEDS: *HR* HYDROcodone/Acet 10/325 mg TABLET PO PRN ×2 (08:10→16:36)
[2021-09-17] MEDS: Aspirin 81 MG TAB.CHEW PO SCH (08:10)
[2021-09-17] MEDS: levoFLOXacin 750 MG/150 ML 750 MG/150 ML BAG IVPB SCH (08:12)
[2021-09-17] MEDS ORDERED: Acetaminophen 325 MG TABLET PO ONE (12:49)
[2021-09-17] MEDS: *HR* Heparin 5,000 UNIT/ML VIAL SQ SCH ×2 (14:37→21:27)
[2021-09-18] MEDS: *HR* HYDROcodone/Acet 10/325 mg TABLET PO PRN ×3 (00:38→16:37)
[2021-09-18 01:32] LABS: Basophils % 0.2 %; Eosinophils # 0.2 K/mcL (0.0-0.6); Eosinophils % 3.3 %; Hematocrit 37.1 % (35.3-44.9); Hemoglobin 11.5 g/dL (11.5-15.4); Immature Granulocytes % 0.6 % (0-4); Lymphocytes # 0.6 K/mcL (0.6-4.6); Lymphocytes % 9.1 %; Mean Corpuscular Hemoglobin 30.7 pg (28.0-33.3); Mean Corpuscular Volume 98.9 fL (83.0-100.0); Mean Platelet Volume 11.8 fL (9.4-12.4); Monocytes # 0.2 K/mcL (0.0-1.3); Monocytes % 2.3 %; Neutrophils # 5.6 K/mcL (1.6-8.9); Platelet Count 297 K/mcL (140-400); Red Blood Count 3.75 M/mcL (3.82-4.97); Red Cell Distribution Width 21.8 % (11.5-14.5); Segmented Neutrophils % 84.5 %; White Blood Count 6.6 K/mcL (4.3-11.1)
[2021-09-18 01:39] LABS: Platelet Estimate Normal (Normal)
[2021-09-18 01:54] LABS: BUN/Creatinine Ratio 20 (6-26); Blood Urea Nitrogen 9 mg/dL (8-23); Carbon Dioxide 20 mEq/L (23-29); Chloride 108 mEq/L (98-107); Glucose 88 mg/dL (70-105); Osmolality,Calculated 276 (280-300); Potassium 4.1 mEq/L (3.5-5.1); Sodium 134 mEq/L (136-145); eGFR For African Americans > 60 (> 60); eGFR For Non-African Americans > 60 (> 60)
[2021-09-18] MEDS: Ipratropium/Albuterol Neb 3 ML IH SCH ×7 (03:31→23:31)
[2021-09-18] MEDS: *HR* Heparin 5,000 UNIT/ML VIAL SQ SCH ×3 (06:35→22:56)
[2021-09-18] MEDS: Levothyroxine 25 MCG TABLET PO SCH (06:36)
[2021-09-18] MEDS: atenoloL 50 MG TABLET PO SCH (08:11)
[2021-09-18] MEDS: Aspirin 81 MG TAB.CHEW PO SCH (08:11)
[2021-09-18] MEDS: levoFLOXacin 750 MG/150 ML 750 MG/150 ML BAG IVPB SCH (08:12)
[2021-09-18 15:05] LABS: Adenovirus Not Detected (Not Detect); Bordetella Pertussis Not Detected (Not Detect); Chlamydophila pneumoniae Not Detected (Not Detect); Coronavirus 229E Not Detected (Not Detect); Coronavirus HKU1 Not Detected (Not Detect); Coronavirus NL63 Not Detected (Not Detect); Coronavirus OC43 Not Detected (Not Detect); Human Metapneumovirus Not Detected (Not Detect); Human Rhinovirus/Enterovirus Not Detected (Not Detect); Influenza A Subtype 2009 H1 Not Detected (Not Detect); Influenza B Not Detected (Not Detect); Mycoplasma pneumoniae Not Detected (Not Detect); Parainfluenza Virus 1 Not Detected (Not Detect); Parainfluenza Virus 2 Not Detected (Not Detect); Parainfluenza Virus 3 Not Detected (Not Detect); Parainfluenza Virus 4 Not Detected (Not Detect); Respiratory Syncytial Virus Not Detected (Not Detect)
[2021-09-18 15:06] LABS: SARS-CoV-2 DETECTED (Not Detect)
[2021-09-19] MEDS: *HR* HYDROcodone/Acet 10/325 mg TABLET PO PRN ×2 (02:14→10:40)
[2021-09-19] MEDS: Ipratropium/Albuterol Neb 3 ML IH SCH ×4 (03:34→15:59)
[2021-09-19 05:43] LABS: Basophils % 0.3 %; Eosinophils # 0.2 K/mcL (0.0-0.6); Eosinophils % 2.5 %; Hematocrit 35.2 % (35.3-44.9); Immature Granulocytes % 0.6 % (0-4); Lymphocytes # 0.9 K/mcL (0.6-4.6); Lymphocytes % 13.5 %; Mean Corpuscular HGB Conc 31.3 g/dL (31.6-35.5); Mean Corpuscular Hemoglobin 31.4 pg (28.0-33.3); Mean Corpuscular Volume 100.6 fL (83.0-100.0); Monocytes # 0.3 K/mcL (0.0-1.3); Monocytes % 4.2 %; Platelet Count 292 K/mcL (140-400); Red Cell Distribution Width 21.8 % (11.5-14.5); Segmented Neutrophils % 78.9 %; White Blood Count 6.4 K/mcL (4.3-11.1)
[2021-09-19 05:58] LABS: BUN/Creatinine Ratio 18 (6-26); Blood Urea Nitrogen 9 mg/dL (8-23); Calcium 8.9 mg/dL (8.6-10.3); Carbon Dioxide 22 mEq/L (23-29); Chloride 106 mEq/L (98-107); Glucose 84 mg/dL (70-105); Osmolality,Calculated 280 (280-300); Potassium 4.2 mEq/L (3.5-5.1); Sodium 136 mEq/L (136-145); eGFR For African Americans > 60 (> 60); eGFR For Non-African Americans > 60 (> 60)
[2021-09-19] MEDS: *HR* Heparin 5,000 UNIT/ML VIAL SQ SCH ×2 (06:38→14:12)
[2021-09-19] MEDS: Levothyroxine 25 MCG TABLET PO SCH (06:39)
[2021-09-19] MEDS: Aspirin 81 MG TAB.CHEW PO SCH (08:21)
[2021-09-19] MEDS: atenoloL 50 MG TABLET PO SCH (08:21)
[2021-09-19] MEDS ORDERED: levoFLOXacin 750 MG TABLET PO SCH (09:00)
[2021-09-19 12:38] VITALS: BP 101/68; PULSE 95; TEMP 97.3; O2SAT 96
== END 2021-09-19 17:08 | disposition other institution (70) | DRG 193 ==
LOC: 2ANU
PROVIDERS: ADMIT Internal Medicine; ATTEND Internal Medicine